=== PATIENT | male | born 1960 | race Caucasian/White ===

== ENCOUNTER 2018-03-18 00:15 | Outpatient (CLI) | payer OTHER, SELFPAY ==
--- NOTE | 2018-03-18 08:30 | ETT_ITS ---
*[facility]* *[facility]* [address] [place] [address] Stress Electrocardiography Josh protocol Date of study: 03/18/2018 *PATIENT PRESENTATION* Height: 170.2cm (67in) Blood Pressure: Weight: 107.3kg (236lb) BSA: 2.3m^2 Ordering physician: Linda Avelar Impressions: Normal study after maximal exercise. Summary: 1. Stress ECG conclusions: The stress ECG is negative. Campbell treadmill score: 4. This score predicts a moderate risk of cardiac events. 2. Stress: The target heart rate was achieved. The heart rate response to stress is normal. There is a normal resting blood pressure with an appropriate response to stress. The patient experienced no chest pain during stress. Exercise capacity is normal for age. Indication: R06.02. History: Risk factors: REASON FOR TESTING: SOB AND CHEST TIGHTNESS WITH EXERTION OVER THE PAST YEAR. PMH: HYPERTENSION, HYPERLIPIDEMIA, OBESITY, VENANCIO, BADILLO, ERECTILE DYSFUNCTION, FAMILY HX: FATHER-HYPERTENSION. SMOKING: QUIT 20 YEARS AGO, 2PPD SMOKER X 18 YEARS. EXCERCISE: NO REGULAR. Family history of coronary artery disease. Hypertension. Obesity. Dyslipidemia. Cholesterol: 203mg/dl. HDL: 47mg/dl. LDL: 97mg/dl. Triglycerides: 226mg/dl. ALLERGIES: NKDA. MEDICATIONS: SILDENAFIL 50 MG NEEDED, YDJIANDMGP48.5 MG DAILY, ATORVASTATIN 40 MG DAILY, ASPIRIN 81 MG DAILY. Protocol: Josh protocol. Baseline ECG: LAST EKG 05/09/2010- SINUS BRADYCARDIA WITH A 1ST DEGREE AVB. TODAY'S EKG- SINUS RHYTHM, 1ST DEGREE AVB. TX 0.28. Stress protocol: + +---+ +---+ !Stage !HR !BP (mmHg) !Sat! + +---+ +---+ !Baseline supine !69 !126/90 (102) !---! + +---+ +---+ !Baseline standing !78 !148/92 (111) !97%! + +---+ +---+ !Stage I; 1.7mph, 10degrees; 3 min !114!158/98 (118) !96%! + +---+ +---+ !Stage II; 2.5mph, 12degrees; 3 min !143!189/108 (135)!---! + +---+ +---+ !Stage III; 3.4mph, 14degrees; 3 min!---! !97%! + +---+ +---+ !Recovery; 1 min !148!178/98 (125) !---! + +---+ +---+ !Recovery; 3 min !89 !170/78 (109) !---! + +---+ +---+ !Recovery; 6 min !89 !134/78 (97) !---! + +---+ +---+ * Stress results: The target heart rate was achieved. The heart rate response to stress is normal. There is a normal resting blood pressure with an appropriate response to stress. The rate-pressure product for the peak heart rate and blood pressure was 48710ie Hg/min. The patient experienced no chest pain during stress. Exercise capacity is normal for age. Stress ECG: EXCERCISE TESTING ENDED IN 7 MINS, 27 SECS DUE TO FATIGUE AND DYSPNEA. MAX HR WAS 160, 97% OF TARGET. HYPERTENSIVE BLOOD PRESSURE RESPONSE. METS: 9.29 ECTOPY: RARE PVC NOTED. ANGINA: PT REPORTED 2/10 PRESSURE BETWEEN SHOULDER BLADES AT THE START OF TESTING, HE BELCHED WITH PRESSURE RELIEF. 0/10 AT START OF RECOVERY. ISCHEMIA: NO ISCHEMIC CHANGES NOTED. FUNCTIONAL CAPACITY: AVERAGE EXCERCISE CAPACITY. The stress ECG is negative. Campbell treadmill score: 4. This score predicts a moderate risk of cardiac events. Study data: Bryce Muro MD supervised and was readily available during the procedure. This study was interpreted by [facility]. Study status: Routine. Consent: The risks, benefits, and alternatives to the procedure were explained to the patient and informed consent was obtained. Procedure: Initial setup. A baseline ECG was recorded. Surface ECG leads and manual cuff blood pressure measurements were monitored. Heart sounds: Normal. Lung sounds: Normal. Treadmill exercise testing was performed using the Josh protocol. Study completion: The patient tolerated the procedure well and was discharged from the lab. Discharge: The patient left the laboratory in stable condition. Birthdate: Patient birthdate: 1960. Sex: Gender: male. Study date: Study date: 03/18/2018. Study time: 08:30 AM. Electronically signed by Bryce Muro MD 03/18/2018 12:17
[2018-03-18 09:44] LABS: HCT 45.8 % (40.0-50.0); HGB 16.2 g/dL (13.5-17.5); Mean Corp. HGB Concentration 35.4 g/dL (32.0-36.0); Mean Corpuscular Volume 87.7 fL (80-95); Mean Platelet Volume 9.9 fL (8.0-11.0); Platelet Count 220 x1000/uL (130-400); RBC 5.22 m/cumm (4.50-6.00); RBC Distribution Width 12.9 % (11.8-14.1); White Blood Cell Count 8.01 k/cumm (4.4-10.8)
[2018-03-18 11:15] LABS: ALT 35 U/L (12-78); AST 24 U/L (15-37); Albumin 3.9 g/dL (3.4-5.0); Alkaline Phosphatase 108 U/L (46-116); Anion Gap 16.7 mmol/L (3-11); BUN 14 mg/dL (7-18); Bilirubin, Total 0.7 mg/dL (0.2-1.0); CO2 21.3 mmol/L (21.0-32.0); Calcium 8.8 mg/dL (8.5-10.1); Chloride 103 mmol/L (98-107); Cholesterol 197 mg/dL (50-200); Glucose 109 mg/dL (70-100); HDL Cholesterol 47 mg/dL (40-60); LDL CHOLESTEROL 106 mg/dL (<100); Potassium 4.1 mmol/L (3.5-5.1); Sodium 141 mmol/L (136-145); Triglyceride 310 mg/dL (30-150)
== END 2018-03-18 00:35 ==
PROVIDERS: PCP Nurse Practitioner; Visit Provider Nurse Practitioner
DX: R06.02 Shortness of breath (principal); R07.89 Other chest pain; E78.5 Hyperlipidemia, unspecified; I10 Essential (primary) hypertension
CPT/HCPCS: 36415; 80053; 80061; 83721; 85027; 93017

== ENCOUNTER → 2020-05-18 03:22 | Outpatient (CLI) | payer OTHER, SELFPAY ==
[2020-05-18 08:04] LABS: Abs Immature Grans 0.02 10^3/uL (0.0-0.06); Absolute Basophil Count 0.03 10^3/uL (0.0-0.2); Absolute Eosinophil Count 0.26 10^3/uL (0.0-0.7); Absolute Lymphocyte Count 1.74 10^3/uL (1.2-3.4); Absolute Neutrophil Count 5.18 10^3/uL (1.2-6.7); Basophils % 0.4; Eosinophils % 3.3; HCT 45.2 % (40.0-50.0); HGB 15.6 g/dL (13.5-17.5); Immature Grans % 0.3; Lymphocytes % 22.2; MCH 30.8 pg (27.0-33.0); MCHC 34.5 % (32.0-36.0); MCV 89.2 fL (80-95); MPV 9.8 fL (8.0-11.0); Monocytes % 7.7; Neutrophils % 66.1; Nucleated RBC 0 %; Platelet Count 228 10^3/uL (130-400); RBC 5.07 10^6/uL (4.36-5.78); RDW 12.7 % (11.8-14.1); RDW-SD 41.4 fL; WBC 7.83 10^3/uL (4.4-10.8)
[2020-05-18 08:56] LABS: ALT 42 U/L (16-63); AST 22 U/L (15-37); Albumin 3.9 g/dL (3.4-5.0); Alkaline Phosphatase 90 U/L (46-116); Anion Gap 9.7 mmol/L (3-11); BUN 15 mg/dL (7-18); CO2 25.3 mmol/L (21.0-32.0); CREATININE 1.06 mg/dL (0.70-1.30); Calcium 8.3 mg/dL (8.5-10.1); Calculated LDL 114 mg/dL (<100); Chloride 103 mmol/L (98-107); Cholesterol 213 mg/dL (<200); Glucose 109 mg/dL (74-106); HDL Cholesterol 46 mg/dL (40-60); Sodium 138 mmol/L (136-145); Total Protein 6.8 g/dL (6.4-8.2); Triglyceride 269 mg/dL (<150)
== END ==
PROVIDERS: PCP Nurse Practitioner; Visit Provider Nurse Practitioner
DX: E66.9 Obesity, unspecified (principal); E78.5 Hyperlipidemia, unspecified; I10 Essential (primary) hypertension
CPT/HCPCS: 36415; 80053; 80061; 85025

== ENCOUNTER 2020-08-17 15:58 | Outpatient (CLI) | payer OTHER, SELFPAY ==
--- NOTE | 2020-08-17 14:45 | DI.RAD_ITS ---
EXAM: XR KNEE LT 3V AP,LAT,ANGEL CLINICAL HISTORY: pain. TECHNIQUE: 2D digital imaging was performed. COMPARISON: No exams were available for comparison FINDINGS: BONES: No acute fracture is present. No bony destructive lesion is seen. Patellar enthesophytes. E nthesophyte at tibial tubercle JOINTS: The knee is normally aligned. No joint effusion is seen. Moderate to severe narrowing of th e medial femoral tibial joint space. Mild periarticular spurring. Patellar femoral joint space well maintained. Mild periarticular spurring. SOFT TISSUE: Normal. IMPRESSION: Moderate to severe degenerative changes of the medial femoral tibial joint. DATA REPOSITORY: RADIATION DOSE DELIVERED:
== END 2020-08-17 15:59 | disposition home or self-care (01) ==
LOC: DIORS 15:59
PROVIDERS: PCP Nurse Practitioner; Referring Provider Nurse Practitioner; Visit Provider Physician Assistant Surgical
DX: M25.562 Pain in left knee (principal); M17.11 Unilateral primary osteoarthritis, right knee
CPT/HCPCS: 73562

== ENCOUNTER → 2020-08-31 02:27 | Outpatient (CLI) | payer OTHER, SELFPAY ==
--- NOTE | 2020-08-31 08:35 | DI.MRI_ITS ---
EXAM: MR LOWER JOINT LT WO CLINICAL HISTORY: Medial meniscus tear,INTERNAL DERANGEMENT LT KNEE, LT KNEE PAIN,M23.92. TECHNIQUE: Multiplanar multisequence MRI was performed. COMPARISON: CR XR KNEE LT 3V AP,LAT,ANGEL from 08/17/2020 FINDINGS: BONES: There is no fracture or contusion pattern. There is a 1.7 x 1.4 cm eccentric subcortical lesio n in the head of the fibula with hyperintense signal on the T2 weighted images and hypointense signal on the T1 weighted images. There is no associated soft tissue mass or cortical disruption identifie d. There is mild spurring of the fibular head. This all may reflect degenerative changes. JOINTS: Articular cartilage is unremarkable. There is a small amount of fluid in the joint space. TENDONS: Extensor mechanism: Unremarkable. Medial retinaculum: Unremarkable. Lateral retinaculum: Unremarkable. Popliteus: Unremarkable. MUSCLES: Unremarkable. MENISCI: There is hyperintense signal seen in the body and posterior horn of the medial meniscus whic h appears to contact the articular surface consistent with a tear. The lateral meniscus is unremarka ble. SOFT TISSUES: There is mild edema in the soft tissues of the anterior medial knee. LIGAMENTS: Anterior Cruciate: Unremarkable. Posterior Cruciate: Unremarkable. Medial Collateral:There is fluid seen around the medial collateral ligament consistent with a sprain. There is mild thickening of the proximal MCL. Lateral Collateral: Unremarkable. OTHER: IMPRESSION: 1. Findings consistent with a tear of the body and posterior horn of the medial meniscus. 2. MCL sprain. DATA REPOSITORY:
== END ==
PROVIDERS: PCP Nurse Practitioner; Visit Provider Student in an Organized Health Care Education/Training Program
DX: M25.562 Pain in left knee (principal); M23.92 Unspecified internal derangement of left knee; S83.242A Other tear of medial meniscus, current injury, left knee, initial encounter; S83.412A Sprain of medial collateral ligament of left knee, initial encounter
CPT/HCPCS: 73721

== ENCOUNTER 2021-02-23 02:16 | Outpatient (CLI) | payer OTHER, SELFPAY ==
[2021-02-23 09:24] LABS: Source Nasal/Nares
[2021-02-23 12:04] LABS: COVID-19 PCR Negative (Negative)
== END 2021-02-23 02:17 | disposition home or self-care (01) ==
PROVIDERS: PCP Nurse Practitioner; Visit Provider Student in an Organized Health Care Education/Training Program
DX: Z20.822 Contact with and (suspected) exposure to COVID-19 (principal); Z01.818 Encounter for other preprocedural examination
CPT/HCPCS: 87635

== ENCOUNTER 2021-02-25 06:09 | Day surgery (SDC) | payer OTHER, SELFPAY ==
[2021-02-25] VITALS (8 sets, daily range): BP systolic 107–134; BP diastolic 70–91; PULSE 51–75; RESP 15–18; TEMP 36.1–36.7; O2SAT 89–95; BMI 38.0
[2021-02-25] MEDS: Lactated Ringers 1,000 ML 100 ML IV (06:52)
--- NOTE | 2021-02-25 07:12 | W.ANESPRE ---
General Info Date of Service Date Performed: 02/25/21 Height: 5 ft 6 in Weight: 106.9 kg Body Mass Index (BMI): 38.0 Surgical Procedure: Operation Date: 02/25/21 07:40 Proposed Procedures Side Surgeon p Knee Arthroscopy WITH any indicated meiscal,chondral and synovail surgery, (partial medial menisectomy) Left Jorge Orozco MD Meds Allergies and Home Medications Allergies Allergy/AdvReac Type Severity Reaction Status Date / Time No Known Allergies Allergy Verified 02/25/21 06:23 Home Medication Medication Instructions Recorded aspirin [Aspirin Low-Strength] 81 mg PO DAILY #90 tab-cap 09/06/12 atorvastatin 40 mg tablet 40 mg PO DAILY #90 tab-cap 05/19/20 lisinopril 10 1 tab PO DAILY #90 tab 05/19/20 mg-hydrochlorothiazide 12.5 mg tablet sildenafil 100 mg tablet 50 mg PO ONCE #30 tab 05/19/20 Current Visit Medications: Current Medications Generic Name Dose Route Start Last Admin Trade Name Freq PRN Reason Stop Dose Admin Ringer's Solution 1,000 mls @ 100 mls/hr 02/25/21 06:00 02/25/21 06:52 IV 03/26/21 23:59 100 mls/hr INFUSION JOSETTE Administration Cefazolin Sodium 3,000 mg/ 100 mls @ 200 mls/hr 02/25/21 06:00 Sodium Chloride IVPB 02/25/21 23:59 PREOP JOSETTE IV Miscellaneous Supplies 1 each 02/25/21 06:00 Iv Access IV 03/26/21 23:59 DIRECTED JOSETTE Sodium Chloride 0 ml 02/25/21 06:00 Normal Saline Flush 10 Ml Syr IV 03/26/21 23:59 PRN PRN Sodium Chloride 0 ml 02/25/21 06:00 Normal Saline 10 Ml Vial IJ 03/26/21 23:59 DIRECTED PRN Sterile Water 0 ml 02/25/21 06:00 Water,Injection,Sterile 10 Ml Vial IJ 03/26/21 23:59 DIRECTED PRN PFSH Active Problems Active Problems: Problem Status Onset Code Enchondroma D16.9 Acute medial meniscus tear of left knee S83.242A Pre-diabetes R73.03 Bilateral hip pain M25.551, M25.552 Routine medical exam Z00.00 Rectus diastasis M62.08 Ventral hernia K43.9 Erectile dysfunction N52.9 VENANCIO (obstructive sleep apnea) ~2008 G47.33 Obesity E66.9 HTN (hypertension) I10 Hyperlipidemia E78.5 Medical History Medical History Pre-diabetes Ventral hernia Surgical History Surgical History Colonoscopy - IV Sedation (06/27/13) Dr. Ackerman, normal Tobacco Smoking/Tobacco Use Status: Former Tobacco Use Tobacco: How many years used: 25 Passive smoking exposure: No Second hand exposure: Yes Alcohol Alcohol Intake: current Alcohol intake frequency: holidays/special occasions only Alcohol type: beer Substance Use Substance use: Never Substance use type: does not use Vital Signs and Lab Results Vital Signs Most Recent Vital Signs in EMR: Most Recent Vital Signs Temp Pulse Resp BP Pulse Ox 36.7 C 68 18 127/91 H 95 02/25/21 06:25 02/25/21 06:25 02/25/21 06:25 02/25/21 06:25 02/25/21 06:25 Lab Results Blood Type / Crossmatch: No Data to Display Complete Blood Count: No Data to Display Complete Metabolic Panel: No Data to Display Liver Function Panel: No Data to Display Coagulation Panel: No Data to Display Cardiac Panel: No Data to Display Arterial Blood Gas: No Data to Display Venous Blood Gas: No Data to Display Pancreas Panel: No Data to Display Thyroid Panel: No Data to Display Infectious Disease: Coronavirus (COVID-19)(PCR) Negative (Negative) 02/23/21 08:59 02/23/21 Coronavirus 2019 Source Nasal/Nares 02/23/21 08:59 02/23/21 Blood Cultures: No Data to Display Toxicology Panel: No Data to Display Anesthesia Assessment and Plan Anesthesia History Personal History: No History of Anesthesia Complications Family History: No Family History of Anesthesia Complications Exercise Tolerance Exercise Tolerance: Metabolic Equivalents>4 Pertinent Negatives Pertinent Negatives: No Symptoms of GERD, No Major Cardiovascular Symptoms or Complaints, No Major Pulmonary Symptoms or Complaints and No History of CVA/TIA Cardiac & Pulmonary Exam Cardiac Exam: Normal S1/S2 Heart Sounds Pulmonary Exam: Clear Bilateral Breath Sounds Airway Exam Known Difficult Airway: No Mallampati Class: 2 Mouth Opening: Normal (> 3cm) Thyromental Distance: Greater than 3 cm Neck Range of Motion: Full ROM Neck Circumference: Normal Teeth Condition: Normal Dentition ASA Classification ASA Score: ASA 2 Emergency Case?: No NPO Status NPO Status: NPO Clears >2 hours, Solids >8 hours Anesthesia Plan Resuscitation Status: Full Code Anesthesia Technique: General Anesthesia Airway Planned: LMA Monitors Used: Standard Monitors
[2021-02-25] MEDS: ceFAZolin 3,000 MG in Normal Saline 100 ML 200 MG IVPB (07:42)
[2021-02-25] MEDS: EPINEPHrine 30 MG/30 ML VIAL (08:08)
[2021-02-25] MEDS: MORPHine 4 MG/ML SYR (08:09)
[2021-02-25] MEDS: Ketorolac 15 MG/ML VIAL IVP (09:10)
--- NOTE | 2021-02-25 09:22 | W.PM.DSUDISC ---
Discharge Plan Disposition Patient Disposition: HOME Condition: Stable Discharge Details Reason For Visit: Left knee surgery Attending Provider: Jorge Orozco Primary Care Provider: Linda Avelar Home Meds and New Rx's Prescriptions: New naproxen 250 mg tablet 250 - 500 mg PO BID PRN (Reason: Moderate pain or swelling) Qty: 40 RF: 0 oxycodone 5 mg tablet 5 - 10 mg PO Q4H PRN (Reason: moderate to severe pain) Qty: 16 RF: 0 Continued atorvastatin 40 mg tablet 40 mg PO DAILY Qty: 90 RF: 3 lisinopril-hydrochlorothiazide [Zestoretic] 10-12.5 mg tablet 1 tab PO DAILY Qty: 90 RF: 3 sildenafil 100 mg tablet 50 mg PO ONCE Qty: 30 RF: 8 aspirin [Aspirin Low-Strength] 81 MG tablet,chewable 81 mg PO DAILY Qty: 90 RF: 3 Discharge Instructions Additional Instructions: Surgery: Knee arthroscopy with partial medial meniscectomy, partial lateral meniscectomy, trochlear chondroplasty, and synovectomy Activity: Weightbearing as tolerated. Advance range of motion as comfort allows. No knee brace or crutches needed as soon as comfortable. Recommend avoiding cutting, pivoting, or squatting for 6-8 weeks. A physical therapy prescription will be sent electronically to start in 2 to 3 weeks. Prescriptions: Resume home aspirin tomorrow Naproxen 250 mg take 1-2 every 12 hours with a meal as needed for moderate pain Oxycodone 5 mg take 1-2 every 4-6 hours as needed for severe pain You may use [id number] Tylenol (acetaminophen) as needed for mild pain. These pain medications may be taken all at once or in different combinations as needed. Also, recommend Colace (docusate) as a stool softener as surgery and pain medicine cause constipation. Diphenhydramine (Benadryl) 25-50 mg may be used as a sleep aid as needed Dressings: Leave dressing in place for 3 days. May then remove and leave open to air or cover incisions with Band-Aids. May shower after 5 days. Follow-up: 10-[address] Orozco with an orthopedic physician construction management assistant and 4-[address] Orozco Let us know right away if you develop any redness, drainage, fevers, chest pain, or trouble breathing. Do not drink alcohol or drive for at least 24 hours after anesthesia. Please call the office during business hours with any questions or concerns. Referrals: Jorge Orozco MD [ [facility] STAFF PHYSICIAN] - Discharge Orders Discharge Orders: Discharge Order (Routine); Ordered 02/25/21 Ordered By: Jorge Orozco DS: Diagnosis Discharge Diagnosis (1) Acute medial meniscus tear of left knee: Status: Acute (2) Acute lateral meniscal injury of left knee: Status: Acute (3) Chondromalacia, left knee: Status: Acute (4) Plica syndrome, left knee: Status: Deleted (5) Synovial plica of left knee: Status: Acute
--- NOTE | 2021-02-25 09:55 | W.ANESPOSTOP ---
Postoperative Evaluation Date, Time and Location Date Performed: 02/25/21 Time Performed: 09:15 Patient Location: PACU Vital Signs Most Recent Imported Vital Signs: Most Recent Vital Signs Temp Pulse Resp BP Pulse Ox 36.4 C L 55 L 16 107/73 93 02/25/21 09:25 02/25/21 09:25 02/25/21 09:25 02/25/21 09:25 02/25/21 09:25 Pain Score Most Recent Pain Score: Most Recent Pain Score Pain Level 0 02/25/21 09:25 Assessment Mental Status: Awake (Alert & Oriented to Patient Baseline) Airway and Respiratory Function: Patent airway with normal (patient baseline) respiratory exam Cardiovascular Function: Hemodynamically Stable Hydration Status: Adequately Hydrated Nausea & Vomiting: No Nausea or Vomiting Pain: Pt. Denies Any Pain Peripheral Nerve Block: Patient did not receive a nerve block
--- NOTE | 2021-02-25 12:11 | ROE_ITS ---
Date of service: 02/25/21 Time of Service: 12:02 Operative Note Operative Note DATE OF PROCEDURE: 02/25/21 PRE-OP DIAGNOSIS: Left knee 1. Medial meniscus tear 2. Synovitis 3. Chondromalacia POST-OP DIAGNOSIS: same PROCEDURE: Left knee 1. Partial medial & lateral meniscectomy, CPT #08747 2. Chondroplasty, CPT #99499: Trochlea SURGEON: Jorge Orozco MACHINE FEEDER FLOORPERSON: None None ANESTHESIA TYPE: Local By Surgeon and General LMA/ETT Refer to Anesthesia Record ESTIMATED BLOOD LOSS: 5 PATHOLOGY: none sent TOURNIQUET TIME: 0 COMPLICATIONS: None Patient was transported to: PACU Patient's condition: stable Indications: Please see complete medical record for details. Findings: Exam under anesthesia: Full range of motion, stable Radha, stable varus valgus. Mild patellofemoral crepitation. Arthroscopic findings: Separate plical synovial scar band suprapatellar pouch centrally and laterally. Central trochlear somewhat diffuse grade 2?3 chondromalacia. Medial femoral condyle grade 1?2 also somewhat diffuse chondromalacia. Mostly horizontal posterior horn and meniscal body tear involving the white and white-red zones. Intact ACL PCL. Small posterior horn lateral meniscus tear fraying involving about 10-15% near the root. Intact lateral compartment cartilage. Procedure Description: In the operating room, genral anesthesia was induced. The patient was positioned supine on the operating room table. All bony prominences were well-padded. Preoperative antibiotics were administered. The knee was prepped and draped in the usual sterile fashion. The correct patient, procedure, and side of the procedure were all verified prior to incision. Exam under anesthesia was performed. 10 cc of 0.5% bupivacaine containing epinephrine was infiltrated about the planned anteromedial and anterolateral knee arthroscopy portals. The portals were established and a complete diagnostic arthroscopy was performed with relevant findings detailed above. The mechanical shaver was used to remove pathologic synovium from the suprapatellar pouch including the plical bands. In the [id number] position, the shaver was all that was necessary to debride and resect on stable frame of the small posterior horn near the root lateral meniscus tear. Using a combination of hand instruments including meniscal biters and a power shaver and working through the anteromedial and anterolateral compartments the medial meniscus was carefully resected and debrided of all torn tissue to a stable margin. Care was taken to preserve as much meniscus tissue was possible of both the superior which was the larger of the flaps and inferior leaflet. The meniscal remnant was appropriately contoured into the posterior horn and meniscal body. The remnant was probed and found to have a stable margin, stable root, and no other tears In about 45 degrees of flexion the mechanical shaver was used to debride loose cartilage flaps of the central trochlea and the patellofemoral compartment. The margin of the cartilage lesion had some unstable cartilage that was only flipped up as much as necessary to resect to a stable margin prevent propagation of cartilage tear or loose bodies. Care was taken to avoid any resection of more cartilage necessary. Under direct arthroscopic visualization an 18-gauge needle was passed into the knee from superolateral into the suprapatellar pouch. The knee was copiously i rrigated with arthroscopic fluid until there was a clear effluent before being drained of all fluid. The anteromedial and anterolateral portals were closed in 3-0 Monocryl in a buried interrupted fashion. 20 cc of 0.5% bupivacaine with epinephrine containing 4 mg of morphine was infiltrated into the knee through the previously placed needle. Mastisol, Steri-Strips, and 4 x 4 gauze were applied over the incisions followed by sterile soft roll. The knee was then wrapped gently with an CHA comressive bandage. The patient awoke from anesthesia without complication and was transferred to the recovery room in a stable condition.
== END 2021-02-25 10:40 | disposition home or self-care (01) ==
PROVIDERS: PCP Nurse Practitioner; Visit Provider Student in an Organized Health Care Education/Training Program
PROC: (CPT 29870; principal; 2021-02-25 07:30)
DX: M23.252 Derangement of posterior horn of lateral meniscus due to old tear or injury, left knee (principal); M23.262 Derangement of other lateral meniscus due to old tear or injury, left knee; M94.262 Chondromalacia, left knee; M67.52 Plica syndrome, left knee; R73.03 Prediabetes
CPT/HCPCS: 29880; J0690; J1100; J1885; J2270; J2405; J2704

== ENCOUNTER 2021-04-27 16:10 | Outpatient (REF) | payer OTHER, SELFPAY ==
[2021-04-27 11:39] LABS: Clarity Clear
[2021-04-27 11:40] LABS: Mononuclear Cells 99 %; Nucleated Cells 203 uL (0); Polynuclear Cells 1 %
== END 2021-04-27 16:11 | disposition home or self-care (01) ==
LOC: LBN 16:10
PROVIDERS: PCP Nurse Practitioner; Visit Provider Student in an Organized Health Care Education/Training Program
DX: M67.52 Plica syndrome, left knee (principal); Z98.890 Other specified postprocedural states
CPT/HCPCS: 87070; 87205; 89051; 89060

== ENCOUNTER 2021-05-24 09:37 | Outpatient (CLI) | payer OTHER, SELFPAY ==
--- NOTE | 2021-05-24 09:30 | DI.RAD_ITS ---
Exam(s) XR KNEE RT 3V AP,LAT,ANGEL XR KNEE LT 3V AP,LAT,ANGEL EXAM: XR KNEE RT 3V AP,LAT,ANGEL and XR knee LT 3 V CLINICAL HISTORY: right knee pain. TECHNIQUE: 2D digital imaging was performed of the right knee. Five views obtained. AP, lateral and Merchant views were obtained. COMPARISON: CR XR KNEE LT 3V AP,LAT,ANGEL from 08/17/2020 FINDINGS: BONES: No acute fracture is present. No bony destructive lesion is seen. Enthesophytes are seen at shauna th the superior and inferior aspects of both patella. JOINTS: There are bilateral joint effusions. In the right knee, there is mild spurring of the patell ofemoral joint. In the left knee, there is moderate joint space narrowing in the medial femoral tibi al joint space and posterior patellar spurring. SOFT TISSUE: Normal. IMPRESSION: 1. Mild bilateral osteoarthritis. 2. Bilateral joint effusions. DATA REPOSITORY: RADIATION DOSE DELIVERED:
== END 2021-05-24 09:38 | disposition home or self-care (01) ==
PROVIDERS: PCP Nurse Practitioner; Referring Provider Nurse Practitioner; Visit Provider Student in an Organized Health Care Education/Training Program
DX: M25.561 Pain in right knee (principal); M25.562 Pain in left knee; M25.461 Effusion, right knee; M25.462 Effusion, left knee; M17.0 Bilateral primary osteoarthritis of knee; Z98.890 Other specified postprocedural states
CPT/HCPCS: 73562

== ENCOUNTER 2021-07-07 02:50 | Outpatient (CLI) | payer OTHER, SELFPAY ==
[2021-07-07 08:07] LABS: Abs Immature Grans 0.03 10^3/uL (0.0-0.06); Absolute Basophil Count 0.05 10^3/uL (0.0-0.2); Absolute Eosinophil Count 0.21 10^3/uL (0.0-0.7); Absolute Lymphocyte Count 1.65 10^3/uL (1.2-3.4); Absolute Monocyte Count 0.57 10^3/uL (0.1-0.8); Absolute Neutrophil Count 4.57 10^3/uL (1.2-6.7); Basophils % 0.7; HCT 45.4 % (40.0-50.0); HGB 15.4 g/dL (13.5-17.5); Immature Grans % 0.4; Lymphocytes % 23.3; MCHC 33.9 % (32.0-36.0); MCV 88.3 fL (80-95); MPV 9.4 fL (8.0-11.0); Monocytes % 8.1; Neutrophils % 64.5; Nucleated RBC 0 %; Platelet Count 230 10^3/uL (130-400); RBC 5.14 10^6/uL (4.36-5.78); RDW 12.6 % (11.8-14.1); RDW-SD 40.9 fL; WBC 7.08 10^3/uL (4.4-10.8)
[2021-07-07 08:41] LABS: Hemoglobin A1C 6.3 % (<5.7)
[2021-07-07 09:11] LABS: ALT 39 U/L (16-63); AST 17 U/L (15-37); Albumin 3.7 g/dL (3.4-5.0); Alkaline Phosphatase 101 U/L (46-116); Anion Gap 9.2 mmol/L (3-11); BUN 14 mg/dL (7-18); Bilirubin, Total 0.9 mg/dL (0.2-1.0); CO2 28.8 mmol/L (21.0-32.0); Calcium 8.3 mg/dL (8.5-10.1); Chloride 103 mmol/L (98-107); Cholesterol 195 mg/dL (<200); Glucose 126 mg/dL (74-106); HDL Cholesterol 42 mg/dL (40-60); Potassium 4.1 mmol/L (3.5-5.1); Sodium 141 mmol/L (136-145); Total Protein 6.6 g/dL (6.4-8.2); Triglyceride 416 mg/dL (<150)
[2021-07-07 09:25] LABS: LDL CHOLESTEROL 90 mg/dL (<100)
[2021-07-07 22:30] LABS: PSA, Screening 0.4 ng/mL (0.0-3.5)
== END 2021-07-07 02:51 | disposition home or self-care (01) ==
LOC: LBO 02:50
PROVIDERS: PCP Nurse Practitioner; Visit Provider Nurse Practitioner
DX: Z12.5 Encounter for screening for malignant neoplasm of prostate (principal); E78.5 Hyperlipidemia, unspecified; I10 Essential (primary) hypertension; R73.01 Impaired fasting glucose; J45.909 Unspecified asthma, uncomplicated
CPT/HCPCS: 36415; 80053; 80061; 83721; 84153; 83036; 85025

== ENCOUNTER 2021-09-23 02:53 | Outpatient (CLI) | payer OTHER, SELFPAY ==
[2021-09-23 12:35] LABS: Uric Acid 6.4 mg/dL (3.5-7.2)
== END 2021-09-23 02:54 | disposition home or self-care (01) ==
PROVIDERS: PCP Nurse Practitioner; Visit Provider Nurse Practitioner
DX: M25.562 Pain in left knee (principal)
CPT/HCPCS: 36415; 84550

== ENCOUNTER 2022-01-27 00:19 | Outpatient (CLI) | payer OTHER, SELFPAY ==
--- OUTSIDE RECORDS SUMMARY | 2022-01-27 00:22 | XMS_ITS | Encounter Summary ---
:1960 Author Organization [facility] Address [address] [place] [address] Care Team Providers Name Role Phone Unknown, Provider Primary Care Provider Encounter Details Date Type Department Care Team Description 07/07/2021 Lab Requisition [facility] Outr Resulting Lab, Pathology & Laboratory Provider [facility] [address] [place] [address] Social History Tobacco Use Types Packs/Day Years Used Date Never Assessed Sex Assigned at Date Recorded Not on file documented as of this encounter Plan of Treatment Not on filedocumented as of this encounter Procedures Procedure Name Priority Date/Time Associated Comments Diagnosis PSA TOTAL, Routine 07/07/2021 8:00 EST Results for this DIAGNOSTIC procedure are i n the results section. documented in this encounter Results PSA TOTAL, DIAGNOSTIC (07/07/2021 8:00 EST) Pathologist Sig nature PSA 0.4 0.0 - 3.5 ng/mL [facility] Specimen Blood - Venous blood (substance) Narrative [facility] - 07/07/2021 22:25 EST NOTE: Serum PSA concentration should not be in terpreted as absolute evidence for the presence or absence of malignant disease. Assayed on Siemens ADVIA Centaur XPT usi ng chemiluminescent technology.??Values obtained by using different assay methods cannot be used interchangeably. Performing Organization Address City/State/ZIP Code Phon e Number [facility] [address] [place] [address] SERVICES documented in this encounter Visit Diagnoses Not on filedocumented in this encounter Care Teams Information Technology Account Manager Relationship Specialty Start Date End Date Unknown, Provider, PCP - General 03/26/15 documented as of this encounter
--- OUTSIDE RECORDS SUMMARY | 2022-01-27 00:22 | XMS_ITS | Clinical Summary ---
:1960 Author Organization [facility] Address [address] [place] [address] Care Team Providers Name Role Phone Unknown, Provider Primary Care Provider Social History Tobacco Use Types Packs/Day Years Used Date Never Assessed Sex Assigned at Date Recorded Not on file Plan of Treatment Health Maintenance Due Date Last Done Comments Hepatitis C Screen 1960 COVID-19 Vaccine (1) 1966 Care Teams Recovery Coach Relationship Specialty Start Date End Date Unknown, Provider, PCP - General 03/26/15
--- OUTSIDE RECORDS SUMMARY | 2022-01-27 00:22 | XMS_ITS | Encounter Summary ---
:1960 Author Organization [facility] [place] [address] Care Team Providers Name Role Phone Tonny Chenug MD Primary Care Provider [phone] Reason for Visit Reason Comments Skin Check Encounter Details Date Type Department Care Team Description 02/10/2014 [facility] [place] [facility] [address] [place] [facility] DERMATOLOGY [place], [place] [id number] [phone] Social History Tobacco Use Types Packs/Day Years Used Date Never Smoker Sex Assigned at Date Recorded Not on file documented as of this encounter Patient Instructions Patient InstructionsLavonne Radford LPN - 02/10/2014 4:41 PM EDT Images from the original note were not included. [facility] Skin Tag Removal: After Your Visit Your Care Instructions Skin tags are small lumps of fleshy brown, bustillos, or pink skin. They are usually raised or hang from the skin on a small stalk. They often grow on the eyelids, neck, armpit, and groin. Skin tags are not moles and usually do not turn into cancer. You are more likely to get skin tags if you are overweight. They also tend to run in families. Skin tags may be removed if they bother you. Your doctor can remove an unwanted skin tag by simply cutting it off. However, new skin tags often form. Follow-up care is a denton part of your treatment and safety. Be sure to make and go to all appointments, and call your doctor if you are having problems. It's also a good idea to know your test results and keep a list of the medicines you take. How can you care for yourself at home? ?? If clothing irritates a skin tag, cover it with a bandage to prevent rubbing and bleeding. ?? If you have a skin tag removed, clean the area with soap and water two times a day unless your doctor gives you different instructions. Don't use hydrogen peroxide or alcohol, which can slow healing. ?? You may cover the wound with a thin layer of petroleum jelly, such as Vaseline, and a nonstick bandage. ?? Check all the skin on your body once a month for skin growths or other changes, such as color andfeel of the skin. ?? insurance and financial services agent front of a full-length mirror. Look carefully at the front and back of your body. Then look at your right and left sides with your arms raised. ?? Bend your elbows and look carefully at your forearms, the back of your upper arms, and your palms. ?? Look at your feet, the soles of your feet, and the spaces between your toes. ?? Use a hand mirror to look at the back of your legs, the back of your neck, and your back, rear end (buttocks), and genital area. Part the hair on your head to look at your scalp. ?? If you see a change in a skin growth, contact your doctor. Look for: ?? A mole that bleeds. ?? A fast-growing mole. ?? A scaly or crusted growth on the skin. ?? A sore that will not heal. When should you call for help? Call your doctor now or seek immediate medical care if: ?? You have a bump that itches and bleeds. ?? You have an area of normal skin that suddenly changes in shape, size, or how it looks. ?? You have signs of infection such as: ?? Pain, warmth, or swelling in your skin. ?? Red streaks near a wound in your skin. ?? Pus coming from a wound in your skin. ?? A fever not due to the flu or other illness. Watch closely for changes in your health, and be sure to contact your doctor if: ?? You do not get better as expected. Where can you learn more? Visit our health information library at [email or web address] You can also view health information on [employer], your personal patient account. Log in or sign up today. Enter B457 in the search box to learn more about Skin Tag Removal: After Your Visit. ?? [phone] [employer]. Care instructions adapted under license by [facility]. This care instruction is for use with your licensed healthcare professional. If you have questionsabout a medical condition or this instruction, always ask your healthcare professional. [employer] disclaims any warranty or liability for your use of this information. Content Version: [id number]; Last Revised: July 02, 2012 documented in this encounter Progress Notes Obey Penn MD - 02/10/2014 4:57 PM EDT Problem: Tags. Dustin is a 53-year-old gentleman who is referred today by Dr. Cheung for removal of some bothersome skin tags. They are often rubbed and irritated. Physical examination reveals one on the left lateral upper eyelid, two on the left upper eyelid centrally, and three in either axillary vault. Assessment and Plan: 1. Bothersome tags. a. As these are rubbed and irritated, today they were anesthetized and removed with snip/electrodesiccation. b. Post treatment wound care instructions given. Recommend return to clinic her p.r.n. for new lesions/concerns. COPY: Tonny Cheung M.D. documented in this encounter Plan of Treatment Not on filedocumented as of this encounter Visit Diagnoses Diagnosis Acrochordon - Primary Unspecified hypertrophic and atrophic co ndition of skin documented in this encounter Care Teams Courtesy Driver Relationship Specialty Start Date End Date Tonny Cheung MD PCP - General 09/07/10 02/27/17 [address] [place] [address] documented as of this encounter
--- OUTSIDE RECORDS SUMMARY | 2022-01-27 00:22 | XMS_ITS | Clinical Summary ---
:1960 Author Organization [facility] [place] [address] Care Team Providers Name Role Phone Unknown Primary Care Provider Unavailable Allergies No known active allergies Medications Medication Sig Dispensed Refills Start Date End Date Status lisinopril-hydrochlorot Take 1 tablet by 0 Active hiazide mouth daily. (PRINZIDE;ZESTORETIC) 20-12.5 mg Tablet simvastatin (ZOCOR) 10 Take 10 mg by 0 Active mg Tablet mouth nightly. sildenafil (VIAGRA) 100 Take 100 mg by 0 Active mg Tablet mouth as needed. Active Problems Problem Noted Date Acrochordon 02/10/2014 Social History Tobacco Use Types Packs/Day Years Used Date Never Smoker Sex Assigned at Date Recorded Not on file Plan of Treatment Health Maintenance Due Date Last Done Comments Covid-19 Vaccine (#1) 1966 HIV screen 10/10/1979 Hepatitis C Screening 10/10/1979 Lipid Screening 10/10/1979 Tdap adult 1980 Tetanus vaccine 1980 Colonoscopy 2006 Zoster vaccine (1 of 2) 10/10/2011 Advance Directive 2016 Influenza (Flu) vaccine (1 of 1 - Influenza standard 01/19/2022 series) Care Teams Echo Vascular Tech Relationship Specialty Start Date End Date Unknown PCP - General 02/28/17 None
--- NOTE | 2022-01-27 06:30 | DI.MRI_ITS ---
Exam(s) MR LOWER JOINT RT WO EXAM: MR LOWER JOINT RT WO CLINICAL HISTORY: Persistent pain,acute medial meniscus tear,s83.241a. TECHNIQUE: Multiplanar multisequence MRI was performed. COMPARISON: CR XR KNEE RT 3V AP,LAT,ANGEL from 05/24/2021 FINDINGS: BONES: There is no fracture or contusion pattern. JOINTS: Mild degenerative changes are seen in the femoral tibial joint with cartilage loss and periar ticular spurring, medial greater than lateral. There is a small joint effusion. TENDONS: Extensor mechanism: Unremarkable. Medial retinaculum: Unremarkable. Lateral retinaculum: Unremarkable. Popliteus: Unremarkable. MUSCLES: Unremarkable. MENISCI: There is a large tear of the body and posterior horn of the medial meniscus. The lateral me niscus is unremarkable. SOFT TISSUES: There is mild edema seen anterior to the patella. No focal fluid collection is seen in the soft tissues. LIGAMENTS: Anterior Cruciate: Unremarkable. Posterior Cruciate: Unremarkable. Medial Collateral:There is mild fluid around the medial collateral ligament suggesting a grade 1 spra in. Lateral Collateral: Unremarkable. OTHER: IMPRESSION: 1. Tear of the body and posterior horn of the medial meniscus. 2. Grade 1 sprain of the MCL. 3. Mild degenerative changes of the knee. 4. Small joint effusion. DATA REPOSITORY:
== END 2022-01-27 00:39 ==
LOC: DI 00:19
PROVIDERS: PCP Nurse Practitioner; Visit Provider Student in an Organized Health Care Education/Training Program
DX: S83.241A Other tear of medial meniscus, current injury, right knee, initial encounter (principal); S83.411A Sprain of medial collateral ligament of right knee, initial encounter; M17.11 Unilateral primary osteoarthritis, right knee; X58.XXXA Exposure to other specified factors, initial encounter
CPT/HCPCS: 73721

== ENCOUNTER 2022-03-03 10:26 | Day surgery (SDC) | payer OTHER, SELFPAY ==
[2022-03-03] VITALS (8 sets, daily range): BP systolic 110–145; BP diastolic 73–95; PULSE 55–72; RESP 14–18; TEMP 36.3–37; O2SAT 90–97; BMI 39.0
--- NOTE | 2022-03-03 11:23 | W.ANESPRE ---
General Info Date of Service Date Performed: 03/03/22 Height: 5 ft 6 in Weight: 109.8 kg Body Mass Index (BMI): 39.0 Surgical Procedure: Operation Date: 03/03/22 12:10 Proposed Procedure Side Surgeon p Knee Arthroscopy w/Any Indicated Meniscal, Chondral and Synovial Surgery Right Jorge Orozco MD Meds Allergies and Home Medications Allergies Allergy/AdvReac Type Severity Reaction Status Date / Time No Known Allergies Allergy Verified 03/03/22 10:54 Home Medication Medication Instructions Recorded aspirin 81 mg chewable tablet 81 mg PO DAILY #90 tab-caps 09/06/12 (Aspirin Low-Strength) atorvastatin 40 mg tablet 40 mg PO DAILY #90 tab-caps 06/16/21 lisinopril 10 1 tab PO DAILY #90 tabs 06/16/21 mg-hydrochlorothiazide 12.5 mg tablet (Zestoretic) celecoxib 200 mg capsule 200 mg PO DAILY PRN knee pain #90 01/03/22 caps naproxen 250 mg tablet 250 - 500 mg PO BID PRN #20 tabs 03/03/22 oxycodone 5 mg tablet 5 - 10 mg PO Q4H PRN moderate to 03/03/22 severe pain #12 tabs Current Visit Medications: Current Medications Generic Name Dose Route Start Last Admin Trade Name Freq PRN Reason Stop Dose Admin Ringer's Solution 1,000 mls @ 0 mls/hr 03/03/22 06:00 IV 03/03/22 16:00 INFUSION JOSETTE Cefazolin Sodium 3,000 mg/ 100 mls @ 200 mls/hr 03/03/22 06:00 Sodium Chloride IVPB 03/03/22 16:00 PREOP JOSETTE IV Miscellaneous Supplies 1 each 03/03/22 06:00 Iv Access IV 03/03/22 23:59 DIRECTED JOSETTE Oxycodone HCl 0 mg 03/03/22 07:16 Oxycodone 5 Mg Tab PO Q3H PRN PRN Pain Sodium Chloride 0 ml 03/03/22 06:00 Normal Saline Flush 10 Ml Syr IV 03/03/22 23:59 PRN PRN Sodium Chloride 0 ml 03/03/22 06:00 Normal Saline 10 Ml Vial IJ 03/03/22 23:59 DIRECTED PRN Sterile Water 0 ml 03/03/22 06:00 Water,Injection,Sterile 10 Ml Vial IJ 03/03/22 23:59 DIRECTED PRN PFSH Active Problems Active Problems: Problem Status Onset Code Acute medial meniscus tear of right knee ~04/2021 S83.241A Pre-diabetes R73.03 History of smoking 30 or more pack years Z87.891 Status post arthroscopy of left knee 02/25/21 Z98.890 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 Ackerman, normal Tobacco Smoking/Tobacco Use Status: Former Tobacco Use Passive smoking exposure: No Second hand exposure: No Alcohol Alcohol Intake: current Alcohol intake frequency: holidays/special occasions only Alcohol type: beer Substance Use Substance use: Never Substance use type: does not use Vital Signs and Lab Results Vital Signs Most Recent Vital Signs in EMR: Most Recent Vital Signs Temp Pulse Resp BP Pulse Ox 37.0 C 72 18 145/95 H 96 03/03/22 10:46 03/03/22 10:46 03/03/22 10:46 03/03/22 10:46 03/03/22 10:46 Lab Results Blood Type / Crossmatch: No Data to Display Complete Blood Count: No Data to Display Complete Metabolic Panel: No Data to Display Liver Function Panel: No Data to Display Coagulation Panel: No Data to Display Cardiac Panel: No Data to Display Arterial Blood Gas: No Data to Display Venous Blood Gas: No Data to Display Pancreas Panel: No Data to Display Thyroid Panel: No Data to Display Infectious Disease: No Data to Display Blood Cultures: No Data to Display Toxicology Panel: No Data to Display Imaging and Studies Imaging and Studies Study information below may be from another EMR and interpreted by another provider. Please see original notes in EMR for more complete details. Stress Test Summary: Stress results: The target heart rate was achieved. The heart rate response to stress is normal. There is a normal resting blood pressure with an appropriate response to stress. The rate-pressure product for the peak heart rate and blood pressure was 24703op Hg/min. The patient experienced no chest pain during stress. Exercise capacity is normal for age. Stress ECG: EXCERCISE TESTING ENDED IN 7 MINS, 27 SECS DUE TO FATIGUE AND DYSPNEA. MAX HR WAS 160, 97% OF TARGET. HYPERTENSIVE BLOOD PRESSURE RESPONSE. METS: 9.29 ECTOPY: RARE PVC NOTED. ANGINA: PT REPORTED 2/10 PRESSURE BETWEEN SHOULDER BLADES AT THE START OF TESTING, HE BELCHED WITH PRESSURE RELIEF. 0/10 AT START OF RECOVERY. ISCHEMIA: NO ISCHEMIC CHANGES NOTED. FUNCTIONAL CAPACITY: AVERAGE EXCERCISE CAPACITY. 03/18/18 Anesthesia Assessment and Plan Anesthesia History Personal History: No History of Anesthesia Complications Family History: No Family History of Anesthesia Complications Exercise Tolerance Exercise Tolerance: Metabolic Equivalents>4 Cardiac & Pulmonary Exam Cardiac Exam: Normal S1/S2 Heart Sounds Pulmonary Exam: Clear Bilateral Breath Sounds Implantable Cardiac Device Does patient have a Pacemaker or an ICD?: No Airway Exam Known Difficult Airway: No Mallampati Class: 2 Mouth Opening: Normal (> 3cm) Thyromental Distance: Greater than 3 cm Neck Range of Motion: Full ROM Neck Circumference: Normal Teeth Condition: Loose or Chipped (MULTIPLE CHIPPED TEETH ON LEFT SIDE OF MOUTH ) ASA Classification ASA Score: ASA 3 Emergency Case?: No NPO Status NPO Status: NPO Clears >2 hours, Solids >8 hours Anesthesia Plan Resuscitation Status: Full Code Anesthesia Technique: General Anesthesia Airway Planned: LMA Monitors Used: Standard Monitors
[2022-03-03] MEDS: Lactated Ringers 1,000 ML 30 ML IV (11:25)
[2022-03-03] MEDS: ceFAZolin 3,000 MG in Normal Saline 100 ML 200 MG IVPB (13:25)
[2022-03-03] MEDS: EPINEPHrine 30 MG/30 ML VIAL (13:50)
[2022-03-03] MEDS: MORPHine 4 MG/ML SYR (13:51)
[2022-03-03] MEDS: Bupivacaine 0.25% Pres-Free W/EPI 30 ML VIAL (13:51)
--- NOTE | 2022-03-03 14:41 | W.PM.DSUDISC ---
Discharge Plan Disposition Patient Disposition: HOME Condition: Stable Discharge Details Reason For Visit: Right knee surgery Attending Provider: Jorge Orozco Primary Care Provider: Linda Avelar Home Meds and New Rx's Prescriptions: New naproxen 250 mg tablet 250 - 500 mg PO BID PRNQty: 20 0RF Rx Instructions: take with a meal oxycodone 5 mg tablet 5 - 10 mg PO Q4H MDD 30 mg PRN (Reason: moderate to severe pain) Qty: 12 0RF Continued celecoxib 200 mg capsule 200 mg PO DAILY PRN (Reason: knee pain) Qty: 90 0RF aspirin [Aspirin Low-Strength] 81 MG tablet,chewable 81 mg PO DAILY Qty: 90 lisinopril-hydrochlorothiazide [Zestoretic] 10-12.5 mg tablet 1 tab PO DAILY Qty: 90 3RF Rx Instructions: for blood pressure atorvastatin 40 mg tablet 40 mg PO DAILY Qty: 90 3RF Discharge Instructions Additional Instructions: Surgery: Right knee arthroscopy with partial medial & lateral meniscectomy and intercondylar notch osteochondroplasty Activity: Weightbearing as tolerated. Advance range of motion as comfort allows. No knee brace or crutches needed as soon as comfortable. Recommend avoiding high?impact activities for 6-8 weeks. A physical therapy prescription will be sent electronically to start in about 3 weeks. Prescriptions: Resume home Aspirin 81 mg daily tomorrow afternoon or evening, >24 hours after surgery Naproxen 250 mg take 1-2 every 12 hours with a meal as needed for moderate pain (do not use at same time as celecoxib/Celebrex) Oxycodone 5 mg take 1-2 every 4-6 hours as needed for severe pain You may use [id number] Tylenol (acetaminophen) as needed for mild pain. These pain medications may be taken all at once or in different combinations as needed. Also, recommend Colace (docusate) as a stool softener as surgery and pain medicine cause constipation. You may try wwbg-zih-sqmnizd diphenhydramine (Benadryl) 25-50 mg nightly as a sleep aid Dressings: Leave dressing in place for 3 days. May then remove and leave open to air or cover incisions with Band-Aids. May shower after 5 days. Follow-up: 10-[address] Orozco You may take off the leg compression stockings this evening at home. You may also leave them on a few days longer if you have a history of leg swelling or edema. Let us know right away if you develop any redness, drainage, fevers, chest pain, or trouble breathing. Do not drink alcohol or drive for at least 24 hours after anesthesia. Please call the office during business hours with any questions or concerns. Discharge Orders Discharge Orders: Discharge Order (Routine); Ordered 03/03/22 Ordered By: Jorge Orozco DS: Diagnosis Discharge Diagnosis (1) Acute medial meniscus tear of right knee: Status: Acute
--- NOTE | 2022-03-03 14:48 | ROE_ITS ---
Operative Note Operative Note DATE OF PROCEDURE: 03/03/22 PRE-OP DIAGNOSIS: Right knee 1. Medial meniscus tear 2. Chondromalacia POST-OP DIAGNOSIS: same PROCEDURE: Right knee 1. Partial medial & lateral meniscectomy, CPT #63110 2. Intercondylar notch osteochondroplasty, CPT#03091 SURGEON: Jorge Orozco PROCESS TRAINER: None None ANESTHESIA TYPE: Local By Surgeon and General LMA/ETT Refer to Anesthesia Record ESTIMATED BLOOD LOSS: 5 PATHOLOGY: none sent TOURNIQUET TIME: 0 Patient was transported to: PACU Patient's condition: stable Indications: Please see complete medical record for details. Findings: Exam under anesthesia: Reasonably full range of motion, no instability Arthroscopic findings: Moderate to high-grade tricompartmental chondromalacia. Moderate marginal intercondylar notch, patellar, trochlear and lateral femoral condyle osteophytes. Intact ACL and PCL. Moderate medial meniscus degenerative tearing body and posterior horn. Mild lateral meniscus central and root fraying partial tearing. Procedure Description: In the operating room, genral anesthesia was induced. The patient was positioned supine on the operating room table. All bony prominences were well- padded. Preoperative antibiotics were administered. The knee was prepped and draped in the usual sterile fashion. The correct patient, procedure, and side of the procedure were all verified prior to incision. Exam under anesthesia was performed. 10 cc of 0.25% bupivacaine containing epinephrine was infiltrated about the planned anteromedial and anterolateral knee arthroscopy portals. The portals were established and a complete diagnostic arthroscopy was performed with relevant findings detailed above. Using a combination of hand instruments including meniscal biters and a power shaver and working through the anteromedial and anterolateral portals the medial and lateral menisci were probed and debrided of all torn tissue to a stable margin. Care was taken to preserve as much meniscus tissue as possible. The meniscal remnants were probed and found to have a stable margin, stable root, and no other tears although the medial meniscus had mucoid degenerative tissue throughout. There were marginal osteophytes impinging on the ACL and PCL in the intercondylar notch. There was mild fraying abrasion on the lateral side of the ACL, which was otherwise intact. An osteochondroplasty was performed medially and laterally resecting the abnormal bone and cartilage with the mechanical shaver reopening the space in the intercondylar area and establishing impingement?free range of motion. Under direct arthroscopic visualization an 18-gauge needle was passed into the knee from superolateral into the suprapatellar pouch. The knee was copiously irrigated with arthroscopic fluid until there was a clear effluent before being drained of all fluid. The anteromedial and anterolateral portals were closed in 3-0 Monocryl in a buried interrupted fashion. 20 cc of 0.25% bupivacaine with epinephrine containing 4 mg of morphine was infiltrated into the knee through the previously placed needle. Mastisol, Steri-Strips, and 4 x 4 gauze were applied over the incisions followed by sterile soft roll. The knee was then wrapped gently with an CHA comressive bandage. The patient awoke from anesthesia without complication and was transferred to the recovery room in a stable condition.
--- NOTE | 2022-03-03 15:28 | W.ANESPOSTOP ---
Postoperative Evaluation Date, Time and Location Date Performed: 03/03/22 Time Performed: 15:28 Patient Location: Day Surgery Unit Vital Signs Most Recent Imported Vital Signs: Most Recent Vital Signs Temp Pulse Resp BP Pulse Ox 36.4 C L 56 L 16 125/89 93 03/03/22 15:08 03/03/22 15:08 03/03/22 15:08 03/03/22 15:08 03/03/22 15:08 Pain Score Most Recent Pain Score: Most Recent Pain Score Pain Level 4 03/03/22 15:08 Assessment Mental Status: Awake (Alert & Oriented to Patient Baseline) Airway and Respiratory Function: Patent airway with normal (patient baseline) respiratory exam Cardiovascular Function: Hemodynamically Stable Hydration Status: Adequately Hydrated Nausea & Vomiting: No Nausea or Vomiting Pain: Pain is tolerable per patient Peripheral Nerve Block: Patient did not receive a nerve block
== END 2022-03-03 16:05 | disposition home or self-care (01) ==
PROVIDERS: PCP Nurse Practitioner; Visit Provider Student in an Organized Health Care Education/Training Program
PROC: (CPT 29870; principal; 2022-03-03 12:00)
DX: M23.231 Derangement of other medial meniscus due to old tear or injury, right knee (principal); M23.261 Derangement of other lateral meniscus due to old tear or injury, right knee; M94.261 Chondromalacia, right knee
CPT/HCPCS: 29879; 29880; J0690; J1100; J1885; J2270; J2405; J2704; J3010

== ENCOUNTER 2022-05-18 02:28 | Outpatient (CLI) | payer OTHER, SELFPAY ==
[2022-05-18 12:12] LABS: ALT 33 U/L (16-63); AST 22 U/L (15-37); Alkaline Phosphatase 110 U/L (46-116); Anion Gap 6.1 mmol/L (3-11); BUN 15 mg/dL (7-18); Bilirubin, Total 0.8 mg/dL (0.2-1.0); CO2 27.9 mmol/L (21.0-32.0); CREATININE 0.9 mg/dL (0.70-1.30); Calcium 8.6 mg/dL (8.5-10.1); Calculated LDL 93 mg/dL (<100); Chloride 104 mmol/L (98-107); Cholesterol 194 mg/dL (<200); Estimated GFR 97.78 (mL/min/1.73m2); Glucose 99 mg/dL (74-106); HDL Cholesterol 54 mg/dL (40-60); Sodium 138 mmol/L (136-145); Total Protein 7.3 g/dL (6.4-8.2); Triglyceride 239 mg/dL (<150)
== END 2022-05-18 02:29 | disposition home or self-care (01) ==
LOC: LBO 02:28
PROVIDERS: PCP Nurse Practitioner; Visit Provider Nurse Practitioner
DX: E78.5 Hyperlipidemia, unspecified (principal); I10 Essential (primary) hypertension; R73.03 Prediabetes
CPT/HCPCS: 36415; 80053; 80061

== ENCOUNTER 2022-10-10 07:45 | Emergency (ER) | payer OTHER, SELFPAY ==
[2022-10-10 07:50] VITALS: BP 165/100; PULSE 60; RESP 18; TEMP 37.2; O2SAT 94
--- NOTE | 2022-10-10 08:00 | DI.CT_ITS ---
Exam(s) CT NECK W EXAM: CT NECK W CLINICAL HISTORY: neck abscess. TECHNIQUE: Imaging Protocol: Axial computed tomography images with coronal and sagittal reformatted images were created and reviewed. CONTRAST MATERIAL: Intravenous: Omnipaque 350 Contrast volume:100mL COMPARISON: No exams were available for comparison FINDINGS: The examination is limited due to patient motion artifact. Orbits and orbital soft tissues: Within normal limits. Visualized paranasal sinuses: There is mild mucosal thickening in the maxillary sinuses and right sp henoid sinus. The remaining visualized paranasal sinuses are clear as are the mastoid air cells. Nasopharynx: Within normal limits. Oropharynx: Within normal limits. Hypopharynx: Within normal limits. Larynx: Within normal limits. Retropharyngeal space: Within normal limits. Parotids/submandibular: There is asymmetric enlargement of the left parotid and submandibular gland with stranding in the surrounding soft tissues. There is also of asymmetric thickening of the left p latysma. No focal fluid collection is seen to suggest an abscess. Mildly enlarged lymph nodes are s een in the left neck which are likely reactive. Thyroid gland: Within normal limits. Lymphadenopathy: There is scattered lymph nodes seen along the level one to level three all measurin g less than 8 mm in short axis diameter which are physiologic in nature. Mildly enlarged reactive lym ph nodes in the left neck. Trachea: Within normal limits. Lung apices: Within normal limits. Bones: Within normal limits for the patient's age. Carotids/Jugular: Within normal limits. Soft tissues: Within normal limits. IMPRESSION: 1. Inflammation involving the left side of the neck including the platysma, parotid and submandibular glands. No focal fluid collection is seen to suggest an abscess. 2. Findings were discussed with Dr. Phoenix Gardner at 10:39 a.m. on 10/10/2022. RADIATION DOSE DELIVERED: 616.41mGy.cm Total DLP 616.41mGy.cm Total DLP DATA REPOSITORY: All CT scans at this facility are submitted to the National Radiology Data Registry (NRDR) Dose Index Registry (DIR) with the [employer] (A[employer]). RADIATION OPTIMIZATION: All CT scans at this facility use at least one of these dose optimization te chniques: automated exposure control; mA and/or kV adjustment per patient size (includes targeted exa ms where dose is matched to clinical indication); or iterative reconstruction.
--- NOTE | 2022-10-10 08:12 | ED.GENADUL_ITS ---
Discharge Plan Disposition Patient Disposition: Home Discharge Details Clinical Impression: Cellulitis of face, Facial swelling Primary Care Provider: Linda Avelar ED Provider: Shyam Gardner Home Meds and New Rx's Prescriptions: New amoxicillin-pot clavulanate 875-125 mg tablet 1 tab PO BID 10 Days Qty: 20 0RF Continued meloxicam 15 mg tablet 15 mg PO DAILY Qty: 30 3RF aspirin [Aspirin Low-Strength] 81 MG tablet,chewable 81 mg PO DAILY Qty: 90 atorvastatin 40 mg tablet 40 mg PO DAILY Qty: 90 3RF Discontinued lisinopril-hydrochlorothiazide [Zestoretic] 10-12.5 mg tablet 1 tab PO DAILY Qty: 90 3RF Rx Instructions: for blood pressure Discharge Instructions Instructions: Cellulitis (ED) Additional Instructions: You were seen in the emergency department for facial swelling. We performed labs and a CAT scan that were unremarkable. You likely have a skin infection called cellulitis of your face. Take the prescribed antibiotics for the full course. Follow-up with your doctor about continuing your lisinopril/hydrochlorothiazide. I think it is less likely that this represented any reaction to these medications but you should still follow-up with your doctor about this finding. Return for any worsening symptoms. Referrals: Linda Avelar, [employer] [Primary Care Provider] - 1 week Medical Decision Making 62-year-old gentleman with history of hypertension/hyperlipidemia is now presenting with left-sided facial swelling. Based off of the location of his symptoms I think this most likely represents parotitis or sialolithiasis. Doubt facial cellulitis or abscess but he does say he feels it moving down his neck so we will get CT soft tissue neck to further evaluate for abscess collection or more serious infection. No pain with range of motion of the neck and uvula is midline and base of the tongue is soft effectively ruling out other soft tissue abscesses in the neck. He is fully vaccinated as a child and there is no redness so I do not think that this represents mumps so no role for evaluation for this diagnosis at this time. He has no dental pain or significantly poor dentition so I think it is less likely to be a dental source for the facial cellulitis that remains in the differential though certainly will still be seen on the CT. We will provide some analgesia while awaiting initial imaging and labs and reevaluate. Medical Records Medical records reviewed: Yes I reviewed the patient's medical records. Imaging Data Radiologic Study: Attestation: I personally reviewed and interpreted this imaging study as follows: Imaging: CT Scan (ct soft tissue neck) Radiologist's impression: IMPRESSION: 1. Inflammation involving the left side of the neck including the platysma, parotid and submandibular glands.? No focal fluid collection is seen to suggest an abscess. 2. Findings were discussed with Dr. Phoenix Gardner at 10:39 a.m. on 10/10/2022. Lab Data Lab results reviewed: Yes I reviewed the patient's lab results. HPI General Date/Time Provider Initiated Documentation: 10/10/22 07:48 . Limitations to Documentation: no limitations . Information obtained by: patient and family . HPI Narrative: This is a 62-year-old gentleman with history of hypertension, hyperlipidemia who is now presenting with left sided facial swelling. Says it started Sunday. No injury or trauma. No dental pain. Says the left side of his face has just continued to get bigger. Up-to-date on childhood vaccinations. Says the swelling and pain got worse today so he came here. Denying any other complaints. No fevers or chills. Does not use any IV drugs or other drugs. No recent surgeries or procedures. No pain with moving his neck and no trouble swallowing. Has no new medications. Related Data Home Medications Medication Instructions Recorded Confirmed aspirin 81 mg chewable tablet 81 mg PO DAILY #90 tab-caps 09/06/12 09/08/22 (Aspirin Low-Strength) meloxicam 15 mg tablet 15 mg PO DAILY #30 tabs 05/11/22 09/08/22 atorvastatin 40 mg tablet 40 mg PO DAILY #90 tab-caps 05/29/22 09/08/22 amoxicillin 875 mg-potassium 1 tab PO BID 10 days #20 tabs 10/10/22 clavulanate 125 mg tablet Previous Rx's Medication Instructions Recorded meloxicam 15 mg tablet 15 mg PO DAILY #30 tabs 05/11/22 atorvastatin 40 mg tablet 40 mg PO DAILY #90 tab-caps 05/29/22 amoxicillin 875 mg-potassium 1 tab PO BID 10 days #20 tabs 10/10/22 clavulanate 125 mg tablet Allergies Allergy/AdvReac Type Severity Reaction Status Date / Time No Known Allergies Allergy Verified 10/10/22 07:54 General Stated Complaint: GenMedical GIOVANNI: 3 Review of Systems Constitutional Constitutional: Denies chills, Denies fever(s) and Denies headache(s) Eyes Eyes: Denies change in vision ENT Ears, Nose, Mouth, and Throat: Denies halitosis, Denies change in voice, Denies dental pain, Denies dysphagia, Denies dry mouth, Denies ear discharge, Denies otalgia, Reports facial pain, Denies headache(s) and Denies odynophagia Comments: Left-sided facial swelling. Cardiovascular Cardiovascular: Denies chest pain and Denies dyspnea Respiratory Respiratory: Denies dyspnea Gastrointestinal Gastrointestinal: Denies abdominal pain, Denies dysphagia, Denies diarrhea, Denies nausea, Denies odynophagia and Denies vomiting Genitourinary Genitourinary: Denies dysuria Musculoskeletal Musculoskeletal: Denies myalgias Integumentary/Breasts Skin/Breast: Denies changing lesions Neurologic Neurologic: Denies behavioral changes and Denies headache(s) Psychiatric Psychiatric: Denies behavioral changes Endocrine Endocrine: Denies heat intolerance Hematologic/Lymphatic Hematologic/Lymphatic: Denies lymphadenopathy PFSH All Active Problems (Updated 10/10/22 @ 11:03 by Shyam Gardner MD) Cellulitis of face (Acute) Facial swelling (Acute) Status post arthroscopy of right knee (Acute 03/03/22) Arthritis of knee, right (Acute) Acute medial meniscus tear of right knee (Acute ~04/2021) Pre-diabetes (Acute) History of smoking 30 or more pack years (Acute) Status post arthroscopy of left knee (Acute 02/25/21) Synovial plica of left knee (Acute) Chondromalacia, left knee (Acute) Acute lateral meniscal injury of left knee (Acute) Enchondroma (Acute) Acute medial meniscus tear of left knee (Acute) Pre-diabetes (Acute) Bilateral hip pain (Acute) Routine medical exam (Acute) Rectus diastasis (Acute) Ventral hernia (Acute) Erectile dysfunction (Chronic) VENANCIO (obstructive sleep apnea) (Chronic ~2008) C-PAP and nasal mask, Radha Obesity (Chronic) HTN (hypertension) (Chronic) Hyperlipidemia (Chronic) Surgical History Colonoscopy - IV Sedation (06/27/13) Dr. Ackerman, normal Social History Smoking/Tobacco Use Status: Former Tobacco Use Quit Date: 05/21/99 Tobacco: How many years used: 25 Second Hand Exposure: No Smoking risk assessment performed?: Yes Alcohol Intake: current Alcohol Intake frequency: holidays/special occasions only Alcohol type: beer Drug use: Never Substance use type: does not use Adopted: No Caregiver/Support person: No Foster care: No Household members: spouse and children Housing: house Number of Children: 3 number of grandchildren: 0 Communication Needs: Corrective Lenses Education Level: high school Do you need help understanding health information?: Never current occupation: [employer] Pets and animals: Yes Pets and animals: cat(s) and dog(s) Sexually active: No Do you think of yourself as: straight/heterosexual Current gender identity: male What is your relationship status?: How often do you talk on the phone with friends or family?: once per week How often do you get together with friends or relatives?: twice per week Do you belong to any clubs or organized social groups?: no Panel score (0-1 are the most socially isolated patients): 2 What type of physical activity do you participate in: none Lala/Islam: Muslim Special lala needs: No Seatbelt use: sometimes Helmet use: Yes Drive intox or ride w/intox 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 It is swollen and tender but there is no redness or warmth. He says he feels a going down into his neck but there is no palpable swelling in the neck and no lymphadenopathy. Full range of motion of the neck without pain. Uvula is midline. Base of the tongue is soft. No obvious dilatation or stones within the salivary ducts within the oropharynx. Otherwise unremarkable ENT exam. Eyes Pupils: PERRL EOM: EOM intact bilaterally and No nystagmus Neck Neck: full ROM and no tracheal deviation Chest Chest: normal inspection of the chest Resp Auscultation: clear to auscultation bilaterally Cardio Rate: regular rate Rhythm: regular rhythm GI Inspection: normal to inspection Palpation: soft, no guarding, not rigid and nontender Back/Spine/Pelvis Back: No no CVA tenderness Thoracic/Lumbar Spine: thoracic and lumbar spine normal to inspection Skin General skin exam: no rashes or lesions noted Neuro General: patient alert, patient awake and patient oriented x3 Cranial Nerves: CN's II-XI intact bilaterally, PERRL and no nystagmus Cognition: normal cognition Motor: muscle tone normal throughout and strength 5/5 throughout Sensory Exam: no sensory deficits noted Extrem General: normal to inspection Course Reevaluation(s) Time: 11:01 Reevaluation: CT unremarkable other than cellulitis. Labs grossly unremarkable. no stones are seen in the salivary ducts. No abscess collection. Will give antibiotics and discharged with return precautions. Vital Signs Vital signs: Vital Signs Temperature 37.2 C 10/10/22 07:50 Pulse 60 10/10/22 07:50 Respiratory Rate 18 10/10/22 07:50 Blood Pressure 165/100 H 10/10/22 07:50 Pulse Oximetry 94 10/10/22 07:50 Temperature 37.2 C 10/10/22 07:50 Temperature Source Temporal Artery Scan 10/10/22 07:50 Pulse 60 10/10/22 07:50 Respiratory Rate 18 10/10/22 07:50 Respiratory Effort Normal, Non-Labored 10/10/22 07:54 Blood Pressure 165/100 H 10/10/22 07:50 Blood Pressure Position Sitting 10/10/22 07:50 Pulse Oximetry 94 10/10/22 07:50 Oxygen Delivery Method Room Air 10/10/22 07:50 Oxygen Flow Rate 0 10/10/22 07:50
[2022-10-10 08:34] LABS: Abs Immature Grans 0.02 10^3/uL (0.0-0.06); Absolute Basophil Count 0.04 10^3/uL (0.0-0.2); Absolute Eosinophil Count 0.28 10^3/uL (0.0-0.7); Absolute Monocyte Count 0.72 10^3/uL (0.1-0.8); Absolute Neutrophil Count 6.26 10^3/uL (1.2-6.7); Basophils % 0.4; HCT 44.7 % (40.0-50.0); HGB 15.4 g/dL (13.5-17.5); Immature Grans % 0.2; Lymphocytes % 21.5; MCH 30.6 pg (27.0-33.0); MCHC 34.5 % (32.0-36.0); MCV 89 fL (80-95); MPV 9.5 fL (8.0-11.0); Monocytes % 7.7; Neutrophils % 67.2; Platelet Count 225 10^3/uL (130-400); RBC 5.04 10^6/uL (4.36-5.78); RDW 12.8 % (11.8-14.1); RDW-SD 41.5 fL; WBC 9.32 10^3/uL (4.4-10.8)
[2022-10-10 08:37] LABS: ESR 9 mm/hr (0-20)
[2022-10-10] MEDS: Normal Saline 1,000 ML 1000 ML IV (08:45)
[2022-10-10] MEDS: Acetaminophen 500 MG TAB 1000 MG PO (08:45)
[2022-10-10] MEDS: Ketorolac 15 MG/ML VIAL IVP (08:45)
[2022-10-10 08:49] LABS: ALT 40 U/L (16-63); AST 24 U/L (15-37); Albumin 3.7 g/dL (3.4-5.0); Alkaline Phosphatase 113 U/L (46-116); BUN 13 mg/dL (7-18); Bilirubin, Total 1.1 mg/dL (0.2-1.0); C-Reactive Protein 1.44 mg/dL (0.0-0.3); Calcium 8.5 mg/dL (8.5-10.1); Chloride 102 mmol/L (98-107); Estimated GFR 85.63 (mL/min/1.73m2); Glucose 112 mg/dL (74-106); Magnesium 2.1 mg/dL (1.8-2.4); Potassium 3.8 mmol/L (3.5-5.1); Sodium 139 mmol/L (136-145); Total Protein 7.2 g/dL (6.4-8.2)
[2022-10-10] MEDS: Omnipaque 350 MG/ML 500 ML BTL-Imaging package IJ (09:48)
[2022-10-10] MEDS: Normal Saline - Diluent 50 ML VIAL IJ (09:48)
[2022-10-10 10:17] VITALS: RESP 18
[2022-10-10 11:02] VITALS: BP 150/91; PULSE 61; RESP 18; TEMP 37.1
== END 2022-10-10 11:11 | disposition home or self-care (01) ==
PROVIDERS: Emergency Provider Student in an Organized Health Care Education/Training Program; PCP Nurse Practitioner
DX: L03.211 Cellulitis of face (principal); I10 Essential (primary) hypertension; E78.5 Hyperlipidemia, unspecified
CPT/HCPCS: 36415; 70491; 80053; 85652; 96361; 96374; 99285; 83735; 85025; 86140; 99284; J1885

== ENCOUNTER 2023-07-09 06:09 | Day surgery (SDC) | payer OTHER, SELFPAY ==
--- NOTE | 2023-07-08 13:48 | W.ANESPRE ---
General Info Date of Service Date Performed: 07/09/23 Height: 5 ft 6 in Weight: 114.305 kg Body Mass Index (BMI): 40.6 Surgical Procedure: Operation Date: 07/09/23 07:35 Proposed Procedure Side Surgeon hermelinda Mendez MD Meds Allergies and Home Medications Allergies Allergy/AdvReac Type Severity Reaction Status Date / Time No Known Allergies Allergy Verified 07/09/23 06:39 Home Medication Medication Instructions Recorded aspirin 81 mg chewable tablet 81 mg PO DAILY #90 tab-caps 09/06/12 (Aspirin Low-Strength) betamethasone dipropionate 0.05 % 1 applic topical BID bilateral leg 10/10/22 topical cream lesions #45 grams atorvastatin 40 mg tablet 40 mg PO DAILY #90 tab-caps 05/02/23 dulaglutide 0.75 mg/0.5 mL 0.75 mg (0.5 mL) subcut QWEEK #2 mL 05/02/23 [facility] methocarbamol 750 mg tablet 750 mg PO TID PRN muscle spasm #30 05/02/23 tabs metformin 500 mg tablet,extended 1,000 mg (2 x 500 mg) PO BID #60 05/08/23 release 24 hr tabs Current Visit Medications: Current Medications Generic Name Dose Route Start Last Admin Trade Name Freq PRN Reason Stop Dose Admin Ringer's Solution 1,000 mls @ 80 mls/hr 07/09/23 06:00 IV 07/09/23 23:59 INFUSION JOSETTE IV Miscellaneous Supplies 1 each 07/09/23 06:00 Iv Access IV 07/09/23 23:59 DIRECTED JOSETTE Sodium Chloride 0 ml 07/09/23 06:00 Normal Saline Flush 10 Ml Syr IV 07/09/23 23:59 PRN PRN Sodium Chloride 0 ml 07/09/23 06:00 Normal Saline 10 Ml Vial IJ 07/09/23 23:59 DIRECTED PRN Sterile Water 0 ml 07/09/23 06:00 Water,Injection,Sterile 10 Ml Vial IJ 07/09/23 23:59 DIRECTED PRN PFSH Active Problems Active Problems: Problem Status Onset Code Diabetes type 2, controlled E11.9 Status post arthroscopy of right knee 03/03/22 Z98.890 Arthritis of knee, right M17.11 Acute medial meniscus tear of right knee ~04/2021 S83.241A Pre-diabetes R73.03 History of smoking 30 or more pack years Z87.891 Status post arthroscopy of left knee 02/25/21 Z98.890 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 Ackerman, normal Tobacco Smoking/Tobacco Use Status: Former Tobacco Use Passive smoking exposure: No Second hand exposure: No Alcohol Alcohol Intake: current Alcohol intake frequency: a few times a month Alcohol type: beer Substance Use Substance use: Never Substance use type: does not use Vital Signs and Lab Results Lab Results Blood Type / Crossmatch: No Data to Display Complete Blood Count: No Data to Display Complete Metabolic Panel: No Data to Display Liver Function Panel: No Data to Display Coagulation Panel: No Data to Display Cardiac Panel: No Data to Display Arterial Blood Gas: No Data to Display Venous Blood Gas: No Data to Display Pancreas Panel: No Data to Display Thyroid Panel: No Data to Display Infectious Disease: No Data to Display Blood Cultures: No Data to Display Toxicology Panel: No Data to Display Imaging and Studies Imaging and Studies Study information below may be from another EMR and interpreted by another provider. Please see original notes in EMR for more complete details. Stress Test Summary: Stress results: The target heart rate was achieved. The heart rate response to stress is normal. There is a normal resting blood pressure with an appropriate response to stress. The rate-pressure product for the peak heart rate and blood pressure was 70202zo Hg/min. The patient experienced no chest pain during stress. Exercise capacity is normal for age. Stress ECG: EXCERCISE TESTING ENDED IN 7 MINS, 27 SECS DUE TO FATIGUE AND DYSPNEA. MAX HR WAS 160, 97% OF TARGET. HYPERTENSIVE BLOOD PRESSURE RESPONSE. METS: 9.29 ECTOPY: RARE PVC NOTED. ANGINA: PT REPORTED 2/10 PRESSURE BETWEEN SHOULDER BLADES AT THE START OF TESTING, HE BELCHED WITH PRESSURE RELIEF. 0/10 AT START OF RECOVERY. ISCHEMIA: NO ISCHEMIC CHANGES NOTED. FUNCTIONAL CAPACITY: AVERAGE EXCERCISE CAPACITY. 03/18/18 Anesthesia Assessment and Plan Anesthesia History Personal History: No History of Anesthesia Complications Family History: No Family History of Anesthesia Complications Exercise Tolerance Exercise Tolerance: Metabolic Equivalents>4 Cardiac & Pulmonary Exam Cardiac Exam: Normal S1/S2 Heart Sounds Pulmonary Exam: Clear Bilateral Breath Sounds Implantable Cardiac Device Does patient have a Pacemaker or an ICD?: No Airway Exam Known Difficult Airway: No Mallampati Class: 2 Mouth Opening: Normal (> 3cm) Thyromental Distance: Greater than 3 cm Neck Range of Motion: Full ROM Neck Circumference: Normal Teeth Condition: Loose or Chipped ASA Classification ASA Score: ASA 3 Emergency Case?: No NPO Status NPO Status: NPO Clears >2 hours, Solids >8 hours Anesthesia Plan Resuscitation Status: Full Code Anesthesia Technique: General Anesthesia Airway Planned: Natural Airway Monitors Used: Standard Monitors Preoperative Comments:: 62 yo male for colo. Sig PMHx: HTN (no medication), VENANCIO (no cpap - hasn't found a machine that works for him), DM2 (metformin, supposed to be on Trulicity but not due to insurance), former smoker, occ EtOH. Previous Anes: - knee scope, LMA 4, no issues. - knee scope, LMA 4, no issues.
--- NOTE | 2023-07-08 19:49 | W.PM.DSUDISC ---
Date of service: 07/09/23 Time of Service: 08:01 Discharge Plan Disposition Patient Disposition: Home Condition: Good Discharge Details Reason For Visit: screening colonoscopy Attending Provider: Jaron Mendez Primary Care Provider: Linda Avelar Home Meds and New Rx's Prescriptions: Continued atorvastatin 40 mg tablet 40 mg PO DAILY Qty: 90 3RF methocarbamol 750 mg tablet 750 mg PO TID PRN (Reason: muscle spasm) Qty: 30 0RF Trulicity 0.75 mg/0.5 mL pen injector 0.75 mg subcut QWEEK Qty: 2 3RF betamethasone dipropionate 0.05 % cream 1 applic topical BID Qty: 45 0RF aspirin [Aspirin Low-Strength] 81 MG tablet,chewable 81 mg PO DAILY Qty: 90 metformin 500 mg tablet extended release 24 hr 1,000 mg PO BID Qty: 60 5RF Discontinued bisacodyl [Dulcolax (bisacodyl)] 5 mg tablet,delayed release (DR/EC) 5 mg PO ONCE Qty: 4 0RF Rx Instructions: Colonoscopy Bowel Prep- Per Instructions polyethylene glycol 3350 17 gram/dose powder 238 g PO ONCE Qty: 238 0RF Rx Instructions: Colonoscopy Bowel Prep- Per Instructions Discharge Instructions Instructions: Diverticulosis (GEN), Colorectal Polyps (GEN), Diverticulosis Diet (GEN) Additional Instructions: Dustin, we were able to complete your colonoscopy today without any difficulty. It did find 2 small polyps. I removed them completely. I will send them off for testing to determine the nature of the tissue. Once I have those results, I will be in touch regarding the timing of your next colonoscopy. Incidentally, he also have some diverticulosis. Diverticula are little weak spots in the muscular portion of the colon wall. They typically occur as we age. The best treatment seems to be maintaining a balanced diet that is rich in fiber. Have attached some general information here regarding typical approaches to diverticular disease as well as colorectal polyps. If you have any questions in the meantime, please do not hesitate to call at any point. 1. If tolerated, consume a soft, low fiber diet for 1-2 days. 2[address] Do not drive, drink alcohol, operate machinery, make critical decisions, or do activities that require coordination or balance for 24 hours. 3. Because air was put into your colon during the procedure, expelling air from your rectum (passing gas or farting) is normal. 4. You may not have a bowel movement for 1-3 days because of the colonoscopy prep. This is normal. 5. Go directly to the emergency room if you notice any of the following: Develop chills (warm to touch), or if you have a thermometer and your temperature is above 101 Difficulty breathing or difficultly swallowing Persistent vomiting Severe abdominal pain, other than gas cramps Severe chest pain Black, tarry stools Any bleeding ? exceeding one tablespoon 6. Call your physician if the site where your intravenous was started becomes red, swollen, painful, and warm to touch. 7. Your physician has reviewed your pre-procedure medications. Please continue to take those medications as previously ordered. You will be given specific information/education regarding any changes to your medications before leaving. Activity:: Activity as Tolerated Diet:: As Tolerated Discharge Orders Discharge Orders: Discharge Order (Routine); Ordered 07/08/23 Ordered By: Jaron Mendez DS: Diagnosis Discharge Diagnosis (1) Encounter for screening colonoscopy: Status: Acute Asessment and Plan: Follow-up on polyp results
--- NOTE | 2023-07-08 19:51 | W.COLOREPORT ---
Date of service: 07/09/23 Time of Service: 08:03 Colonoscopy Report Date of procedure: 07/09/23 Pre-op diagnosis general: screening colonoscopy Post-op diagnosis procedure note: other (Diverticulosis, colon polyps) Procedure: colonoscopy with polypectomy Surgeon: Jaron Mendez Anesthesia Type: General:No Airway Estimated blood loss (mL): 10 Pathology: other (0.25 cm polyp at 55 cm, 0.5 cm polyp at 20 cm) Complications: None Disposition: same day Indications: Domo is 62 years old and he needs his next screening colonoscopy Prep: Miralax/Dulcolax Procedure Start Time: 07:33 Procedure End Time: 07:52 Retraction Time: 14 Findings: Sigmoid diverticulosis, 0.25 cm flat polyp at 55 cm, 0.5 cm flat polyp at 20 cm Procedure Description: After the induction of monitored anesthetic care, and with the patient in left lateral decubitus position, I began by performing an external anorectal exam.? Perineum and skin were normal, as was the anal verge.? There was no evidence of external hemorrhoids.? Next, I performed a digital rectal exam.? I did not appreciate any abnormal findings.? Next, I advanced a colonoscope into the rectal vault.? I performed retroflexion.? This was normal.? Using insufflation, I then advanced the colonoscope beyond the rectal folds and into the sigmoid colon before advancing towards the cecum.? There was some sigmoid diverticulosis.? The scope was noted to be in the cecum by identification of the ileocecal valve and appendiceal orifice.? I then began withdrawing the colonoscope using repeated irrigation as necessary for full evaluation of the colonic mucosa. Around 55 cm from the anal verge I identified a 0.25 cm polyp. ?It appeared flat in character. ?I was able to remove this with a cold forcep polypectomy. ?I examined the site, and there was minimal bleeding. ?Once this was completed, I continued to withdraw the scope and examine the remainder of the colonic mucosa. I also found a 0.5 cm flat polyp at 20 cm from the anal verge. This was also removed with cold forceps without any issues. ?Once the scope was withdrawn to the level of the rectum, great care was taken to examine portions of the rectal folds.? Finally, the scope was withdrawn and the patient was brought to the same-day surgery recovery unit as the anesthetic wore off. ?The findings and instructions were shared with the patient prior to discharge. [place] Bowel Prep [place] Bowel Prep Right Colon: 3 Left Colon: 3 Transverse Colon: 3 Total Score: 9
[2023-07-09 06:32] VITALS: BMI 40.6
[2023-07-09 06:41] VITALS: BP 125/86; PULSE 72; RESP 16; TEMP 36.6; O2SAT 94
[2023-07-09] MEDS: Lactated Ringers 1,000 ML 80 ML IV (06:45)
--- NOTE | 2023-07-09 07:45 | BOWEL_PTH ---
PATIENT: Domo Bennett LOC: [facility] U#:[id number] AGE/SX: 62/M ROOM: RE07/09/[address]: Jaron Mendez MD : 1960 BED: DIS: 07/09/2023 SPEC #: [id number] RECD: 07/09/23 12:37 STATUS: GALO REQ #: [id number] ROHIT: 07/09/23 07:[address]: Jaron Mednez DEPT: Surgical Specimen RECD BY: Jennifer Thomason ENTERED: 07/09/23 12:38 SP TYPE: Bowel OTHR DR: Linda Avelar APRN Tissues: 1 - BIOPSY BOWEL 2 - BIOPSY BOWEL Procedures: GROSS AND MICRO LEVEL 4 Comments: [id number]
[2023-07-09 07:57] VITALS: BP 119/82; PULSE 64; RESP 16; TEMP 36.4; O2SAT 95
--- NOTE | 2023-07-09 08:05 | W.ANESPOSTOP ---
Postoperative Evaluation Date, Time and Location Date Performed: 07/09/23 Time Performed: 08:06 Patient Location: Day Surgery Unit Vital Signs Most Recent Imported Vital Signs: Most Recent Vital Signs Temp Pulse Resp BP Pulse Ox 36.4 C L 64 16 119/82 95 07/09/23 07:57 07/09/23 07:57 07/09/23 07:57 07/09/23 07:57 07/09/23 07:57 Pain Score Most Recent Pain Score: Most Recent Pain Score Pain Level 0 07/09/23 06:41 Assessment Mental Status: Awake (Alert & Oriented to Patient Baseline) Airway and Respiratory Function: Patent airway with normal (patient baseline) respiratory exam Cardiovascular Function: Hemodynamically Stable Hydration Status: Adequately Hydrated Nausea & Vomiting: No Nausea or Vomiting Pain: Pt. Denies Any Pain Peripheral Nerve Block: Patient did not receive a nerve block
[2023-07-09 08:24] VITALS: BP 122/88; PULSE 59; RESP 16; TEMP 36.4; O2SAT 95
== END 2023-07-09 08:30 | disposition home or self-care (01) ==
LOC: SUR 06:09
PROVIDERS: PCP Nurse Practitioner; Visit Provider Surgery
PROC: 0DJD8ZZ Inspection of Lower Intestinal Tract, Via Natural or Artificial Opening Endoscopic (ICD-10-PCS; CPT 45378; principal; 2023-07-09 07:30)
DX: Z12.11 Encounter for screening for malignant neoplasm of colon (principal); D12.5 Benign neoplasm of sigmoid colon; K57.30 Diverticulosis of large intestine without perforation or abscess without bleeding
CPT/HCPCS: 45380; 88305; J2704

== ENCOUNTER 2024-01-22 05:25 | Outpatient (CLI) | payer OTHER, SELFPAY ==
[2024-01-22 12:37] LABS: ALT 40 U/L (16-63); AST 25 U/L (15-37); Albumin 3.9 g/dL (3.4-5.0); Alkaline Phosphatase 109 U/L (46-116); Anion Gap 8.4 mmol/L (3-11); BUN 15 mg/dL (7-18); Bilirubin, Total 0.96 mg/dL (0.2-1.0); CO2 29.6 mmol/L (21.0-32.0); Calcium 8.7 mg/dL (8.5-10.1); Calculated LDL 64 mg/dL (<100); Chloride 103 mmol/L (98-107); Cholesterol 157 mg/dL (<200); Glucose 97 mg/dL (74-106); HDL Cholesterol 51 mg/dL (40-60); Potassium 3.9 mmol/L (3.5-5.1); Sodium 141 mmol/L (136-145); Total Protein 7.1 g/dL (6.4-8.2); Triglyceride 210 mg/dL (<150)
== END 2024-01-22 05:26 | disposition home or self-care (01) ==
LOC: LOS 05:25
PROVIDERS: PCP Nurse Practitioner; Visit Provider Nurse Practitioner
DX: E11.9 Type 2 diabetes mellitus without complications (principal); E78.5 Hyperlipidemia, unspecified
CPT/HCPCS: 36415; 80053; 80061

== ENCOUNTER 2024-06-22 08:57 | Emergency (ER) | payer OTHER, SELFPAY ==
[2024-06-22] VITALS (11 sets, daily range): BP systolic 134–156; BP diastolic 86–94; PULSE 44–63; RESP 9–18; TEMP 36.3; O2SAT 93–98
--- NOTE | 2024-06-22 09:00 | RT.EKG_ITS ---
APPROVED REPORT Exam: Resting ECG Reason for Exam: dizziness Patient Location: E HR:54 bpm ECG Measurements Heart Rate 54 AXIS NH 270 P 16 QRSd 103 QRS -2 QT 442 T 20 QTc 418 Conclusion Sinus bradycardia...rate< 60 Prolonged NH interval...NH >220, V-rate 50- 90 Low voltage, precordial leads...precordial leads <1.0mV
--- NOTE | 2024-06-22 09:30 | DI.RAD_ITS ---
Exam(s) XR CHEST 2V PA LATERAL EXAM: XR CHEST 2V PA LATERAL CLINICAL HISTORY: presyncope TECHNIQUE: 2D digital imaging was performed of the chest. Two images were obtained. PA and lateral views were obtained. COMPARISON: No exams were available for comparison FINDINGS: MEDIASTINUM: Normal. HEART: Normal. PULMONARY VASCULATURE: Normal. LUNGS: Clear. PLEURAL SPACE: No pleural effusion or pneumothorax. BONE:Within normal limits for the patient's age. OTHER FINDINGS:Normal. IMPRESSION: No acute pulmonary findings. DATA REPOSITORY: RADIATION DOSE DELIVERED:
[2024-06-22 10:15] LABS: COVID-19 PCR Negative (Negative); Influenza A PCR Negative (Negative); Influenza B PCR Negative (Negative); RSV PCR Negative (Negative)
[2024-06-22 10:16] LABS: Source Nasopharynx
[2024-06-22 10:25] LABS: Abs Immature Grans 0.04 10^3/uL (0.0-0.06); Absolute Basophil Count 0.05 10^3/uL (0.0-0.2); Absolute Eosinophil Count 0.12 10^3/uL (0.0-0.7); Absolute Monocyte Count 0.52 10^3/uL (0.1-0.8); Absolute Neutrophil Count 8.77 10^3/uL (1.2-6.7); Basophils % 0.5 %; Eosinophils % 1.1 %; HCT 45.5 % (40.0-50.0); HGB 15.7 g/dL (13.5-17.5); Immature Grans % 0.4 %; Lymphocytes % 10.4 %; MCH 30.6 pg (27.0-33.0); MCHC 34.5 % (32.0-36.0); MCV 89 fL (80-95); MPV 9.7 fL (8.0-11.0); Monocytes % 4.9 %; Neutrophils % 82.7 %; Platelet Count 198 10^3/uL (130-400); RBC 5.13 10^6/uL (4.36-5.78); RDW 12.4 % (11.8-14.1); RDW-SD 40.7 fL
[2024-06-22 10:40] LABS: Bilirubin Negative (Negative); Blood Negative (Negative); Clarity Clear (Clear); Glucose Negative (Negative); Ketones Negative (Negative); Leukocyte Esterase Negative (Negative); Nitrite Negative (Negative); Urobilinogen 0.2 mg/dL (Up to 0.2)
[2024-06-22] MEDS: Lactated Ringers 500 ML IV (10:40)
[2024-06-22 10:51] LABS: Bacteria Negative HPF (Negative); C & S Indicated? No; Casts 0-2 Hyaline LPF (Negative); Crystals Negative HPF (Negative); Epithelial Cells Rare HPF (Negative); Mucus Trace (Negative); RBC Negative HPF (0-2); WBC Negative HPF (0-5)
[2024-06-22 10:56] LABS: ALT 26 U/L (16-63); AST 16 U/L (15-37); Albumin 3.7 g/dL (3.4-5.0); Alkaline Phosphatase 104 U/L (46-116); Anion Gap 5.5 mmol/L (3-11); BUN 15 mg/dL (7-18); Bilirubin, Total 0.79 mg/dL (0.2-1.0); CO2 30.5 mmol/L (21.0-32.0); Calcium 8.8 mg/dL (8.5-10.1); Chloride 106 mmol/L (98-107); Glucose 112 mg/dL (74-106); Potassium 3.9 mmol/L (3.5-5.1); Sodium 142 mmol/L (136-145); TSH (W/Ref FT4) 1.64 uIU/mL (0.36-3.74); Total Protein 6.7 g/dL (6.4-8.2); Troponin I 8 ng/L (<or=76)
[2024-06-22 11:32] LABS: Troponin I 4 ng/L (<or=76)
--- NOTE | 2024-06-22 11:53 | ED.GENADUL_ITS ---
Discharge Plan Disposition Patient Disposition: Home Discharge Details Clinical Impression: Postural dizziness with presyncope Primary Care Provider: Linda Avelar ED Provider: Jennifer Reyes Home Meds and New Rx's Prescriptions: Continued methocarbamol 750 mg tablet 750 mg PO TID PRN (Reason: muscle spasm) Qty: 30 0RF aspirin [Adult Low Dose Aspirin] 81 mg tablet,delayed release (DR/EC) 81 mg PO DAILY Ozempic 1 mg/dose (4 mg/3 mL) pen injector 1 mg subcut QWEEK Qty: 3 8RF metformin 500 mg tablet extended release 24 hr 1,000 mg PO QDAY Qty: 180 3RF atorvastatin 40 mg tablet See Rx Instructions .ROUTE .COMPLEX Qty: 90 3RF Dose Instruction: TAKE 1 TABLET DAILY Rx Instructions: TAKE 1 TABLET DAILY lisinopril-hydrochlorothiazide [Zestoretic] 10-12.5 mg tablet 1 tab PO DAILY Qty: 90 3RF Rx Instructions: for blood pressure Discharge Instructions Instructions: Near Fainting (DC) Additional Instructions: Try to have at least 3 meals daily, no need for sick You may have had an element of labyrinthitis or inner ear dysfunction this morning You may try an Jeremiah maneuver in the morning, YouTube this maneuver if this happens again you may attempt it If your symptoms return please return as needed for reassessment Otherwise make sure you are having at least eight 8 ounce glasses of water daily and 3 solid meals Your tests today are all reassuring Your pulse is on the low end of normal, however this appears to be her baseline, an outpatient Holter monitor might be a good idea at your doctor's discretion Referrals: Linda Avelar NP [Primary Care Provider] - 1 day HPI General Date/Time Provider Initiated Documentation: 06/22/24 09:03 . HPI Narrative: The patient is a 63-year-old male with a history of diabetes, hypertension, and hyperlipidemia who presents with dizziness and lightheadedness that started this morning. He reports waking up feeling immediately lightheaded when he turned his head, accompanied by a sensation of the room spinning. He experienced nausea and a near-emetic episode, as well as a feeling of impending syncope, though he did not lose consciousness. He has not started any new medications and does not endorse chest pain, shortness of breath, headache, recent head injuries, or neck manipulations. He also does not report any similar symptoms in the past. He mentions feeling thirsty. Despite his history of diabetes, he does not monitor his blood glucose levels at home. Related Data Home Medications ?Medication ?Instructions ?Recorded ?Confirmed methocarbamol 750 mg tablet 750 mg PO TID PRN muscle spasm #30 05/02/23 06/22/24 tabs aspirin 81 mg tablet,delayed 81 mg PO DAILY 07/24/23 06/22/24 release (Adult Low Dose Aspirin) atorvastatin 40 mg tablet See Rx Instructions .Route 08/22/23 06/22/24 .COMPLEX #90 tabs lisinopril 10 1 tab PO DAILY #90 tabs 08/22/23 06/22/24 mg-hydrochlorothiazide 12.5 mg tablet (Zestoretic) metformin 500 mg tablet,extended 1,000 mg (2 x 500 mg) PO QDAY #180 05/06/24 06/22/24 release 24 hr tabs semaglutide 1 mg/dose (4 mg/3 mL) 1 mg (0.75 mL) subcut QWEEK #3 mL 05/06/24 06/22/24 subcutaneous pen injector (Ozempic) Previous Rx's ?Medication ?Instructions ?Recorded methocarbamol 750 mg tablet 750 mg PO TID PRN muscle spasm #30 05/02/23 tabs atorvastatin 40 mg tablet See Rx Instructions .Route 08/22/23 .COMPLEX #90 tabs lisinopril 10 1 tab PO DAILY #90 tabs 08/22/23 mg-hydrochlorothiazide 12.5 mg tablet (Zestoretic) metformin 500 mg tablet,extended 1,000 mg (2 x 500 mg) PO QDAY #180 05/06/24 release 24 hr tabs semaglutide 1 mg/dose (4 mg/3 mL) 1 mg (0.75 mL) subcut QWEEK #3 mL 05/06/24 subcutaneous pen injector (Ozempic) Allergies Allergy/AdvReac Type Severity Reaction Status Date / Time No Known Allergies Allergy Verified 06/22/24 09:16 General Stated Complaint: Dizzy/Sync GIOVANNI: 3 Exam Narrative Exam Narrative: General Appearance: The patient is an alert and oriented 63-year-old male, not in acute distress. Vital signs: Within normal limits. HEENT: Pupils are equal, round, and reactive to light and accommodation. Extraocular muscles are intact. Respiratory: Lungs are clear to auscultation. Cardiovascular: Cardiac rate and rhythm are regular without murmurs. Skin: There are no visible signs of trauma on the skin. Neurological: Cranial nerves II through XII are intact. Negative [id number] test, negative vrrf-[id number] test, negative pronator drift. Course Vital Signs Vital signs: Vital Signs Temperature 36.3 C L 06/22/24 09:13 Pulse 57 L 06/22/24 09:13 Respiratory Rate 18 06/22/24 09:13 Blood Pressure 136/86 06/22/24 09:13 Pulse Oximetry 96 06/22/24 09:13 Temperature 36.3 C L 06/22/24 09:13 Temperature Source Oral 06/22/24 09:13 Pulse 50 L 06/22/24 10:41 Pulse 47 L 06/22/24 11:00 Respiratory Rate 10 L 06/22/24 11:00 Respiratory Effort Normal, Non-Labored 06/22/24 09:18 Respiratory Depth Normal 06/22/24 09:18 Respiratory Pattern Normal 06/22/24 09:18 Blood Pressure 134/89 06/22/24 10:41 Blood Pressure Mean 101 06/22/24 10:41 Pulse Oximetry 95 06/22/24 11:00 Lab/Test Results Lab/Test Results: Laboratory Studies Electrolytes including magnesium are all within normal limits. TSH and two troponins were all negative. Imaging Chest x-ray does not show evidence of acute abnormality. Testing EKG shows sinus bradycardia, unchanged when compared to prior EKG with possible first degree heart block only. Laboratory Tests Range/Units 06/22/24 06/22/24 06/22/24 09:23 10:15 10:32 WBC (4.4-10.8) 10^3/uL 10.60 RBC (4.36-5.78) 10^6/uL 5.13 Hgb (13.5-17.5) g/dL 15.7 Hct (40.0-50.0) % 45.5 MCV (80-95) fL 89 MCH (27.0-33.0) pg 30.6 MCHC (32.0-36.0) % 34.5 RDW (11.8-14.1) % 12.4 Plt Count (130-400) 10^3/uL 198 MPV (8.0-11.0) fL 9.7 Immature Gran % % 0.4 Neutrophils % % 82.7 Lymphocytes % % 10.4 Monocytes % % 4.9 Eosinophils % % 1.1 Basophils % % 0.5 Nucleated RBC % (0.0-0.3) % 0.0 Absolute Neutrophils (1.2-6.7) 10^3/uL 8.77 H Absolute Lymphocytes (1.2-3.4) 10^3/uL 1.10 L Absolute Monocytes (0.1-0.8) 10^3/uL 0.52 Absolute Eosinophils (0.0-0.7) 10^3/uL 0.12 Absolute Basophils (0.0-0.2) 10^3/uL 0.05 Sodium (136-145) mmol/L 142 Potassium (3.5-5.1) mmol/L 3.9 Chloride (98-107) mmol/L 106 Carbon Dioxide (21.0-32.0) mmol/L 30.5 Anion Gap (3-11) mmol/L 5.5 BUN (7-18) mg/dL 15 Creatinine (0.70-1.30) mg/dL 1.0 Est GFR (CKD-EPI 2020) (mL/min/1.73m2) 85.10 Glucose (74-106) mg/dL 112 H Calcium (8.5-10.1) mg/dL 8.8 Magnesium (1.8-2.4) mg/dL 2.0 Total Bilirubin (0.2-1.0) mg/dL 0.79 AST (15-37) U/L 16 ALT (16-63) U/L 26 Alkaline Phosphatase (46-116) U/L 104 Troponin I (<or=76) ng/L 8 Total Protein (6.4-8.2) g/dL 6.7 Albumin (3.4-5.0) g/dL 3.7 TSH (0.36-3.74) uIU/mL 1.64 Urine Color (Yellow) Yellow Urine Clarity (Clear) Clear Urine pH (5-8) 8.0 Ur Specific [place] (1.005-1.025) 1.020 Urine Protein (Neg-Trace) mg/dL 30 H Urine Ketones (Negative) mg/dL Negative Urine Blood (Negative) Negative Urine Nitrite (Negative) Negative Urine Bilirubin (Negative) Negative Urine Urobilinogen (Up to 0.2) mg/dL 0.2 Ur Leukocyte Esterase (Negative) Negative Urine RBC (0-2) HPF Negative Urine WBC (0-5) HPF Negative Ur Epithelial Cells (Negative) HPF Rare Urine Crystals (Negative) HPF Negative Urine Bacteria (Negative) HPF Negative Urine Casts (Negative) LPF 0-2 Hyaline Urine Mucus (Negative) Trace Ur Culture Indicated? No Urine Glucose (Negative) mg/dL Negative COVID-19 Source Nasopharynx SARS-CoV-2 (PCR) (Negative) Negative Influenza Type A (PCR) (Negative) Negative Influenza Type B (PCR) (Negative) Negative RSV (PCR) (Negative) Negative Range/Units 06/22/24 11:10 WBC (4.4-10.8) 10^3/uL RBC (4.36-5.78) 10^6/uL Hgb (13.5-17.5) g/dL Hct (40.0-50.0) % MCV (80-95) fL MCH (27.0-33.0) pg MCHC (32.0-36.0) % RDW (11.8-14.1) % Plt Count (130-400) 10^3/uL MPV (8.0-11.0) fL Immature Gran % % Neutrophils % % Lymphocytes % % Monocytes % % Eosinophils % % Basophils % % Nucleated RBC % (0.0-0.3) % Absolute Neutrophils (1.2-6.7) 10^3/uL Absolute Lymphocytes (1.2-3.4) 10^3/uL Absolute Monocytes (0.1-0.8) 10^3/uL Absolute Eosinophils (0.0-0.7) 10^3/uL Absolute Basophils (0.0-0.2) 10^3/uL Sodium (136-145) mmol/L Potassium (3.5-5.1) mmol/L Chloride (98-107) mmol/L Carbon Dioxide (21.0-32.0) mmol/L Anion Gap (3-11) mmol/L BUN (7-18) mg/dL Creatinine (0.70-1.30) mg/dL Est GFR (CKD-EPI 2021) (mL/min/1.73m2) Glucose (74-106) mg/dL Calcium (8.5-10.1) mg/dL Magnesium (1.8-2.4) mg/dL Total Bilirubin (0.2-1.0) mg/dL AST (15-37) U/L ALT (16-63) U/L Alkaline Phosphatase (46-116) U/L Troponin I (<or=76) ng/L 4 Total Protein (6.4-8.2) g/dL Albumin (3.4-5.0) g/dL TSH (0.36-3.74) uIU/mL Urine Color (Yellow) Urine Clarity (Clear) Urine pH (5-8) Ur Specific [place] (1.005-1.025) Urine Protein (Neg-Trace) mg/dL Urine Ketones (Negative) mg/dL Urine Blood (Negative) Urine Nitrite (Negative) Urine Bilirubin (Negative) Urine Urobilinogen (Up to 0.2) mg/dL Ur Leukocyte Esterase (Negative) Urine RBC (0-2) HPF Urine WBC (0-5) HPF Ur Epithelial Cells (Negative) HPF Urine Crystals (Negative) HPF Urine Bacteria (Negative) HPF Urine Casts (Negative) LPF Urine Mucus (Negative) Ur Culture Indicated? Urine Glucose (Negative) mg/dL COVID-19 Source SARS-CoV-2 (PCR) (Negative) Influenza Type A (PCR) (Negative) Influenza Type B (PCR) (Negative) RSV (PCR) (Negative) Medical Decision Making Laboratory Studies Electrolytes including magnesium are all within normal limits. TSH and two troponins were all negative. Imaging Chest x-ray does not show evidence of acute abnormality. Testing EKG shows sinus bradycardia, unchanged when compared to prior EKG with possible first degree heart block only. Initial Assessment: 63-year-old male with history of diabetes, hypertension, and hyperlipidemia presenting with dizziness and lightheadedness that started this morning. [place] lightheaded upon waking and turning his head, with nausea and near syncope. Denies chest pain, shortness of breath, headache, recent head injuries, or neck manipulations. Physical exam unremarkable. Differential Diagnosis: - Labyrinthitis versus viral syndrome: Considered due to dizziness and lightheadedness. Plan to follow up with outpatient Holter monitor. ED Course: - EKG shows sinus bradycardia, unchanged from prior EKG with possible first- degree heart block. - Electrolytes including magnesium within normal limits. - Chest x-ray reviewed by radiology and myself, no acute abnormality. - Orthostatics obtained, patient not orthostatic. - Observed on telemetry for approximately 3 hours, no evidence of dysrhythmia. - Two troponins negative. - Patient ambulatory with steady gait. - Condition improved after lunch and 500 cc of fluid. Final Assessment: Patient stable for discharge home. No evidence of TIA, dysrhythmia, or other significant abnormality. Improvement after fluids and lunch is reassuring. Clinical Impression: - Dizziness - Nausea - Presyncope Disposition: - Discharge: Patient stable for discharge home. - Follow-Up: Encouraged to follow up with primary care physician tomorrow for reassessment and outpatient Holter monitor at his discretion. Patient Education: Given low threshold to return for new or worsening complaints. MDM Components Evaluation: - Number of Differential Diagnoses or Management Options: Labyrinthitis versus viral syndrome. - Amount and Complexity of Data Reviewed: EKG, electrolytes, chest x-ray, orthostatics, telemetry, troponins. - Risk of Complication and Morbidity or Mortality: Low risk given stable condition and improvement after fluids. Quality:SDOH Health Related Social Needs: No Data to Display PFSH All Active Problems (Updated 06/22/24 @ 12:00 by MIGUEL ÁNGEL Hodges) Postural dizziness with presyncope (Acute) Tubular adenoma of colon (Acute ~06/2023) Tubular adenoma X1 hyperplastic X1 Encounter for screening colonoscopy (Acute) Diabetes type 2, controlled (Acute) Status post arthroscopy of right knee (Acute 03/03/22) Arthritis of knee, right (Acute) Acute medial meniscus tear of right knee (Acute ~04/2021) Pre-diabetes (Acute) History of smoking 30 or more pack years (Acute) Status post arthroscopy of left knee (Acute 02/25/21) Synovial plica of left knee (Acute) Chondromalacia, left knee (Acute) Acute lateral meniscal injury of left knee (Acute) Enchondroma (Acute) Acute medial meniscus tear of left knee (Acute) Pre-diabetes (Acute) Bilateral hip pain (Acute) Routine medical exam (Acute) Rectus diastasis (Acute) Ventral hernia (Acute) Erectile dysfunction (Chronic) VENANCIO (obstructive sleep apnea) (Chronic ~2008) C-PAP and nasal mask, [place] Obesity (Chronic) HTN (hypertension) (Chronic) Hyperlipidemia (Chronic) Surgical History (Updated 07/10/23 @ 10:25 by Natalia Silva) History of colonoscopy (~06/2023) biopsies Colonoscopy - IV Sedation (06/27/13) Dr. Ackerman, normal Social History (Updated 02/05/24 @ 15:16 by Samira Parry LPN) Smoking/Tobacco Use Status: Former Tobacco Use Quit Date: 05/21/99 Tobacco: How many years used: 25 Second Hand Exposure: No Smoking risk assessment performed?: Yes Alcohol Intake: current Alcohol Intake frequency: a few times a month Alcohol type: beer Drug use: Never Substance use type: does not use Adopted: No Caregiver/Support person: No Foster care: No Household members: spouse and children Housing: house Number of Children: 3 number of grandchildren: 0 Communication Needs: Corrective Lenses Education Level: high school Do you need help understanding health information?: Never current occupation: [employer] Pets and animals: Yes Pets and animals: cat(s) and dog(s) Sexually active: No Do you think of yourself as: straight/heterosexual Current gender identity: male What is your relationship status?: How often do you talk on the phone with friends or family?: once per week How often do you get together with friends or relatives?: twice per week Do you belong to any clubs or organized social groups?: no Panel score (0-1 are the most socially isolated patients): 2 What type of physical activity do you participate in: none Lala/Scientology: Restorationist Special lala needs: No Seatbelt use: sometimes Helmet use: Yes Drive intox or ride w/intox canal driver: No Water heater temp set <120 deg: Yes Working smoke detector in home: Yes Fire extinguisher in home: Yes Carbon monox detector in home: Yes Firearms in home: Yes Firearms unloaded and locked: Yes Do you feel safe at home: Yes Do you feel safe in your relationship?: Yes PAWSS Have you Been Recently Intoxicated or Drunk Within the Last 30 days?: No Have you ever Experienced Withdrawal Seizures?: No Have you ever undergone Alcohol Rehabilitation Treatment (i.e, inpt ot outpatient treatment programs)?: No Have you ever Experienced Blackouts?: No Have you ever Combined Alcohol with other Downers within the last 90 days?: No Have you ever Combined Alcohol with any other Substance of Abuse during the last 90 days?: No Positive Blood Alcohol level on Presentation? [PCS.BAL]: No Evidence of Increased Autonomic Activity (i.e. HR>120, tremor, sweating, agitation, nausea)?: No Result: 0
== END 2024-06-22 12:34 | disposition home or self-care (01) ==
PROVIDERS: Emergency Medicine; Emergency Provider Physician Assistant; PCP Nurse Practitioner
DX: R42 Dizziness and giddiness (principal); R55 Syncope and collapse; E11.9 Type 2 diabetes mellitus without complications; I10 Essential (primary) hypertension; E78.5 Hyperlipidemia, unspecified; R00.1 Bradycardia, unspecified; Z79.82 Long term (current) use of aspirin; Z79.84 Long term (current) use of oral hypoglycemic drugs; Z79.85 Long-term (current) use of injectable non-insulin antidiabetic drugs; Z87.891 Personal history of nicotine dependence
CPT/HCPCS: 36415; 80053; 87637; 93005; 96360; 99285; 71046; 81003; 81015; 83735; 84443; 84484; 85025; 93010

== ENCOUNTER 2024-07-10 01:00 | Outpatient (CLI) | payer OTHER, SELFPAY ==
--- NOTE | 2024-07-10 14:30 | DI.US_ITS ---
APPROVED REPORT EXAM: Comprehensive 2D, Doppler, and color-flow Echocardiogram Patient Location: Out-Patient [employer] Tractor Driver: Grayson Maravilla RDCS (AE) Indications: Episode pre-syncope Other Information Study Quality: Adequate. Technically limited study due to body habitus. Conclusion Normal left ventricular wall thickness and chamber size. Ejection fraction is 60%. Wall motion is n ormal Normal right ventricular size and function Both atria are normal in size There is no structural or hemodynamically significant valvular disease Ascending aorta measures 4 cm Wall motion Left Ventricle The left ventricle is normal size. Left ventricular systolic function is normal. The left ventricular ejection fraction is within the normal range. There is normal left ventricular wall thickness. There is normal LV segmental wall motion. There is no ventricular septal defect visualized. LVEF is 60%. Right Ventricle The right ventricle is normal size. The right ventricular systolic function is normal. Atria The left atrium size is normal. The right atrium size is normal. The interatrial septum is intact wit h no evidence for an atrial septal defect. Aortic Valve Aortic valve is trileaflet. There is no aortic valvular stenosis. No aortic regurgitation is present . Mitral Valve The mitral valve is normal in structure. No evidence of mitral valve stenosis. There is no mitral judit ve regurgitation noted. Tricuspid Valve The tricuspid valve is normal in structure. There is no tricuspid valve stenosis. There is no tricusp id valve regurgitation noted. Pulmonic Valve The pulmonary valve is normal in structure. There is no pulmonic valvular stenosis. Trivial pulmonic regurgitation. Great Vessels The aortic root is normal in size. The ascending aorta is mildly dilated Aortic arch is normal in nisreen iber. IVC is normal in size and collapses >50% with inspiration. Pericardium There is no pericardial effusion. 2D Dimensions IVSD d PLAX 0.86 cm M: 0.6-1.2 Ao Root d 3.43 cm M: 3.1 - 3.7 LVPW d PLAX 0.89 cm M: 0.6 - 1.2 Ao Asc Diam d 4.03 cm M: 2.6 - 3.4 LVID d PLAX 5.23 cm M: 4.2 - 5.8 LVDs 3.34 cm M: 2.5 - 4.0 LV EF Teichholz 65.3 % FS 36.08 % LV EDV (Teich) 131.0 mL LV ESV (Teich) 45.5 mL Stroke Vol Index (Teich) 41.54 M-Mode TAPSE 1.83 cm (M/F) >1.7 Auto EF LV EDV A4C 86.8 mL LV EDV A2C 143.7 mL LV EDV BP 118.1 mL LV ESV A4C 36.3 mL LV ESV A2C 54.8 mL LV ESV BP 44.9 mL LVEF(%) A4C 58.1 % LVEF(%) A2C 61.8 % LVEF(%) BP 62.0 % LV SV A4C 50.4 ml LV SV A2C 88.9 ml LV SV BP 73.2 ml LV CO A4C 3.4 L/min LV CO A2C 5.4 L/min LV CO BP 4.4 L/min HR A4C 67.04 BPM HR A2C 61.20 BPM LV EDV Index (BP) LA Volume LA Length A4C 3.6 cm LA Length A2C 5.0 cm LA Area A4C s 11.84 cm2 LA Area A2C s 15.76 cm2 LA Vol A4C A-L 32.62 mL LA Vol A2C A-L 42.01 mL LA Vol Biplane A-L 43.4 mL LA Vol/BSA A4C A-L LA Vol/BSA A2C A-L LA Vol/BSA BP A-L 21.1 mL/m2 LA Vol A4C MOD 31.6 mL LA Vol A2C MOD 39.6 mL LA Vol BP MOD 41.2 mL LV Diastology MV E' medial 0.069 (>0.07 m/s) MV E Vmax 0.61 (0.4-1.3 m/s) MV E/E' MED 8.91 (<14) MV A Vmax 0.85 (0.4-1.3 m/s) MV E' lateral 0.120 (>0.1 m/s) E/A Ratio 0.7 MV E/E' LAT 5.10 (<14) MV E' Average 0.094 m/s MV E/E'(average) 6.49 Aortic Valve AoV Vmax 1.09 m/s LVOT Vmax 0.82 m/s AoV Peak Grad 4.7 mmHg LVOT Peak Grad 2.7 mmHg AoV Area (Vmax) 2.43 cm2 LVOT VTI 0.155 m AoV VTI 0.220 m LVOT Mean Grad 1.4 mmHg AoV Mean Torsten. 0.78 m/s LVOT SV 49.89 mL AoV Mean Grad 2.8 mmHg LVOT Diam s 2.00 cm AoV Area (VTI) 2.27 cm2 AV Regurg Peak Gr. 4.73 mmHg Velocity Ratio 0.75 Mitral Valve MV DT 256 (160-240 msec) MV Vmax TIPS 0.82 m/s MV Mean Grad 0.8 (<2mmHg) MV VTI 0.235 m Pulmonary Valve PV Vmax 0.88 (0.5-1.5 m/s) RVOT Vmax 0.54 m/s PV Peak Grad 3.1 mmHg RVOT Peak Gr. 1.2 mmHg PV Mean Torsten 0.60 m/s RVOT VTI 0.113 m PV Mean Grad 1.7 mmHg RVOT Mean Gr. 0.7 mmHg
== END 2024-07-10 01:20 ==
LOC: DI 01:00
PROVIDERS: PCP Nurse Practitioner; Visit Provider Internal Medicine Cardiovascular Disease
DX: R55 Syncope and collapse (principal)
CPT/HCPCS: 93306

== ENCOUNTER 2024-07-17 14:47 | Outpatient (RCR) | payer OTHER, SELFPAY | END 2024-07-18 23:59 | disposition home or self-care (01) | LOC: CARDOPNVT 14:47 | PROVIDERS: PCP Nurse Practitioner; Visit Provider Internal Medicine Cardiovascular Disease | DX: R55 Syncope and collapse (principal); I49.1 Atrial premature depolarization | CPT/HCPCS: 93225 ==

== ENCOUNTER 2024-07-19 10:02 | Outpatient (RCR) | payer OTHER, SELFPAY ==
--- NOTE | 2024-07-22 12:35 | W.HOLTRPT ---
Date of service: 07/22/24 Time of Service: 12:35 Holter Monitor Report Referring Provider:: Linda Avelar Indications:: Presyncope Holter Monitor Note: This is a Holter monitor. Patient was monitored for 1 day and 7 hours. Rhythm throughout was sinus with an average heart rate overall of 73. Minimum was 40, maximum 132. A total of 5 isolated premature ventricular contractions were recorded. There are very rare isolated atrial premature beats There was 1 episode of supraventricular tachycardia, probably atrial tachycardia, maximum rate 169. It lasted approximately 2 minutes and was asymptomatic. There was no atrial fibrillation, no high-grade block, no pauses greater than 3 seconds. No symptoms were reported
== END 2024-08-18 23:59 | disposition home or self-care (01) ==
LOC: CARDOPNVT 10:02
PROVIDERS: PCP Nurse Practitioner; Visit Provider Internal Medicine Cardiovascular Disease
DX: R55 Syncope and collapse (principal)
CPT/HCPCS: 93226